=== PATIENT | female | born 1945 | race Caucasian/White ===

== ENCOUNTER → 2019-09-01 09:05 | Outpatient (BNVA) | payer MEDICARE, MEDICAID, SELFPAY | PROVIDERS: Family Provider Physician Assistant Medical; PCP Physician Assistant Medical; Visit Provider Anesthesiology | DX: G89.4 Chronic pain syndrome (principal); M79.605 Pain in left leg; Z79.891 Long term (current) use of opiate analgesic | CPT/HCPCS: 99213; 99214 ==

== ENCOUNTER → 2020-03-08 08:18 | Outpatient (BNVA) | payer MEDICARE, MEDICAID, SELFPAY | PROVIDERS: Family Provider Physician Assistant Medical; PCP Physician Assistant Medical; Visit Provider Anesthesiology | DX: G89.4 Chronic pain syndrome (principal); M79.605 Pain in left leg; M54.9 Dorsalgia, unspecified; Z79.891 Long term (current) use of opiate analgesic | CPT/HCPCS: 99214 ==

== ENCOUNTER → 2020-05-02 08:23 | Outpatient (BNVA) | payer MEDICARE, MEDICAID, SELFPAY | PROVIDERS: Family Provider Physician Assistant Medical; PCP Physician Assistant Medical; Visit Provider Anesthesiology | DX: G89.4 Chronic pain syndrome (principal); M79.605 Pain in left leg; M54.9 Dorsalgia, unspecified; R29.898 Other symptoms and signs involving the musculoskeletal system; Z79.891 Long term (current) use of opiate analgesic | CPT/HCPCS: 99213; 99214 ==

== ENCOUNTER → 2020-07-05 10:49 | Outpatient (BNVA) | payer MEDICARE, MEDICAID, SELFPAY | PROVIDERS: Family Provider Physician Assistant Medical; PCP Physician Assistant Medical; Visit Provider Nurse Practitioner | DX: G89.29 Other chronic pain (principal); M79.605 Pain in left leg; R29.898 Other symptoms and signs involving the musculoskeletal system; M54.9 Dorsalgia, unspecified; Z79.891 Long term (current) use of opiate analgesic | CPT/HCPCS: 99213 ==

== ENCOUNTER → 2020-09-01 10:47 | Outpatient (BNVA) | payer OTHER, MEDICAID, SELFPAY | PROVIDERS: Family Provider Physician Assistant Medical; PCP Physician Assistant Medical; Visit Provider Nurse Practitioner | DX: G89.29 Other chronic pain (principal); M79.605 Pain in left leg; M54.9 Dorsalgia, unspecified; R29.898 Other symptoms and signs involving the musculoskeletal system; Z79.891 Long term (current) use of opiate analgesic | CPT/HCPCS: 99212; 99213 ==

== ENCOUNTER → 2020-10-27 10:26 | Outpatient (BNVA) | payer MEDICARE, MEDICAID, SELFPAY | PROVIDERS: Family Provider Physician Assistant Medical; PCP Physician Assistant Medical; Visit Provider Nurse Practitioner | DX: G89.29 Other chronic pain (principal); R29.898 Other symptoms and signs involving the musculoskeletal system; M79.605 Pain in left leg; M54.9 Dorsalgia, unspecified; Z79.891 Long term (current) use of opiate analgesic | CPT/HCPCS: 99212; 99213 ==

== ENCOUNTER → 2020-12-20 10:45 | Outpatient (BNVA) | payer MEDICARE, MEDICAID, SELFPAY | PROVIDERS: Family Provider Physician Assistant Medical; PCP Physician Assistant Medical; Visit Provider Anesthesiology | DX: G89.29 Other chronic pain (principal); M79.605 Pain in left leg; R29.898 Other symptoms and signs involving the musculoskeletal system; M54.9 Dorsalgia, unspecified; Z79.891 Long term (current) use of opiate analgesic | CPT/HCPCS: 99213 ==

== ENCOUNTER → 2021-02-28 10:35 | Outpatient (BNVA) | payer MEDICARE, MEDICAID, SELFPAY | PROVIDERS: Family Provider Physician Assistant Medical; PCP Physician Assistant Medical; Visit Provider Nurse Practitioner | DX: G89.29 Other chronic pain (principal); M79.605 Pain in left leg; M54.9 Dorsalgia, unspecified; R29.898 Other symptoms and signs involving the musculoskeletal system; Z79.891 Long term (current) use of opiate analgesic | CPT/HCPCS: 99213; 99214 ==

== ENCOUNTER → 2021-03-29 13:09 | Outpatient (BNVA) | payer MEDICARE, MEDICAID, SELFPAY | PROVIDERS: Family Provider Physician Assistant Medical; PCP Physician Assistant Medical; Visit Provider Anesthesiology | DX: G89.29 Other chronic pain (principal); M54.5 Low back pain; M79.605 Pain in left leg; M79.604 Pain in right leg; Z79.891 Long term (current) use of opiate analgesic | CPT/HCPCS: 99213 ==

== ENCOUNTER → 2021-05-17 13:03 | Outpatient (BNVA) | payer MEDICARE, MEDICAID, SELFPAY | PROVIDERS: Family Provider Physician Assistant Medical; PCP Physician Assistant Medical; Visit Provider Anesthesiology | DX: G89.29 Other chronic pain (principal); M79.605 Pain in left leg; M54.50 Low back pain, unspecified; Z79.891 Long term (current) use of opiate analgesic | CPT/HCPCS: 99213 ==

== ENCOUNTER → 2021-07-26 09:43 | Outpatient (BNVA) | payer MEDICARE, MEDICAID, SELFPAY | PROVIDERS: Family Provider Physician Assistant Medical; PCP Registered Nurse; Visit Provider Anesthesiology | DX: G89.29 Other chronic pain (principal); M54.9 Dorsalgia, unspecified; M79.605 Pain in left leg; Z79.891 Long term (current) use of opiate analgesic | CPT/HCPCS: 99213 ==

== ENCOUNTER 2024-04-21 13:25 | Inpatient (IN) | payer MEDICARE, MEDICAID, SELFPAY ==
[2024-04-21] VITALS (15 sets, daily range): BP systolic 122–215; BP diastolic 74–99; PULSE 70–114; RESP 10–18; TEMP 36.7–37.5; O2SAT 85–96; BMI 18.8; BMI 18.1
--- NOTE | 2024-04-21 13:30 | XR_ITS ---
WS: [id number] Right hip, 2 views, AP pelvis, 04/21/2024 Clinical Data: fall Comparison: None. Findings: There is a femoral neck fracture of the right hip. The right femoral head remains within the acetabul um. The left hip shows no definite fracture. The pelvis is intact. There is degenerative change of the lower lumbar vertebral bodies. There is a v katrin caval filter noted. XR/XR hip RT 2-3V wo/w pel* [id number] Impression: 1. Right femoral neck fracture. 2. Negative for definite left hip fracture
--- NOTE | 2024-04-21 13:31 | ED_ITS ---
HPI - Fall 2 General: Chief Complaint: Fall Stated Complaint: FALL Time Seen by Provider: 04/21/24 13:26 Source: patient and EMS Mode of arrival: EMS Limitations: no limitations History of Present Illness: 79-year-old female states she was in her kitchen today and tripped and fell onto her right hip. She states she has had severe right hip pain since then she has not been able to stand she states it is very painful with any movement. She denies hitting her head denies any other injuries at this time. Associated symptoms-after fall: Denies abdominal pain, chest pain, headache(s) or neck pain Related Data Home Medications Medication Instructions Recorded Confirmed apixaban 5 mg tablet (Eliquis) 5 mg PO BID 09/01/19 07/26/21 diphenhydramine HCl 25 mg capsule 25 mg PO .1 at bedtime PRN 12/23/19 07/26/21 (NightTime Sleep Aid (diphenhydramine)) omeprazole 20 mg tablet,delayed 20 mg PO DAILY 12/23/19 07/26/21 release L.acidop,casei,lactis,rham-B.lact,callum cap PO .1 day 05/17/21 07/26/21 625 mg (10 billion cell) capsule (Advanced Probiotic) Previous Rx's Medication Instructions Recorded diclofenac sodium 1 % topical gel 2 g topical QID PRN pain #400 grams 10/27/20 (Voltaren) oxycodone 10 mg tablet 10 mg PO .6 times a day PRN pain 07/26/21 30 days #180 tabs oxycodone 10 mg tablet 10 mg PO .6 times a day PRN pain 07/26/21 30 days #180 tabs tramadol 50 mg tablet 50 mg PO .6 TIMES PRN pain 30 days 07/26/21 #180 tabs Allergies Allergy/AdvReac Type Severity Reaction Status Date / Time celecoxib [From Celebrex] Allergy ADR-Vomitin Verified 07/26/21 09:46 g gabapentin Allergy Unknown Verified 07/26/21 09:46 ibuprofen Allergy ADR-Vomitin Verified 07/26/21 09:46 g nalbuphine [From Nubain] Allergy ADR-Halluci Verified 07/26/21 09:46 nating zolpidem [From Ambien] Allergy ADR-Halluci Verified 07/26/21 09:46 nating Review of Systems 2 Const: Denies: fever(s), chills, body aches or change in appetite ENMT: Denies: throat pain or dental pain Card: Denies: chest pain Resp: Denies: dyspnea GI: Denies: abdominal pain, nausea, vomiting or diarrhea Musc: Reports: extremity pain; Denies: neck pain or back pain Skin/Breast: Denies: rash Neuro: Denies: headache(s) PFSH ED 2 PFSH: Medical History Chronic pain of left lower extremity Nerve entrapment Chronic back pain Opioid contract exists Chronic pain disorder 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 Hx of cancer of lung Surgical History H/O: hysterectomy History of lumpectomy of left breast Hx of cholecystectomy Family History Denies family history of Anesthesia complication Social History Second hand smoke exposure: No Alcohol intake: never Substance/Drug Use: never Physical Exam 2 Const: COMMON NORMALS: no acute distress, patient oriented x3 and healthy appearing HENMT: COMMON NORMALS: normocephalic and atraumatic HEAD & SCALP: n ormocephalic and atraumatic Eye: COMMON NORMALS: conjunctivae normal CONJUNCTIVA: Yes conjunctivae normal Neck/C-Spine: COMMON NORMALS: full ROM and supple Chest: COMMONS NORMALS: normal inspection of the chest Resp: COMMON NORMALS: normal respiratory effort, No retractions, No use of accessory muscles and clear to auscultation bilaterally AUSCULTATION: clear to auscultation bilaterally Cardio: COMMON NORMALS: regular rate, regular rhythm and No murmurs present (Cardio) RATE: regular rate RHYTHM: regular rhythm GI: COMMON NORMALS: Normal to inspection, nondistended, normoactive bowel sounds present, Soft to palpation, non-tender and no masses PALPATION: Yes Soft to palpation Extremity: NARRATIVE EXTREMITY EXAM: Tenderness to right hip distal pulses palpable Neuro: COMMON NORMALS: patient oriented x3, moves all extremities and no focal motor deficits Psych: COMMON NORMALS: mental status grossly normal, Normal thought process present and cooperative THOUGHT PROCESS: Normal thought process present Skin: COMMON NORMALS: no rashes or lesions noted and no wounds GENERAL SKIN EXAM: no rashes or lesions noted Course 2 Vital Signs: Vital signs: Vital Signs Temperature 98.3 F 04/21/24 13:28 Pulse Rate 70 04/21/24 14:34 Respiratory Rate 16 04/21/24 14:08 Blood Pressure 195/91 04/21/24 14:34 Pulse Oximetry 96 04/21/24 14:34 Oxygen Delivery Me thod Aerosol Mask 04/21/24 14:34 MDM - Fall Medical Decision Making Patient presents here with right hip fracture from a fall no other injuries noted I spoke to hospitalist along with orthopedist will admit at this time. Medical Records I reviewed the patient's medical records. Lab Data I reviewed the patient's lab results. 04/21/24 14:15 04/21/24 14:15 Laboratory Results WBC 7.06 10^3/uL (3.29-11.43) 04/21/24 14:15 RBC 4.17 10^6/uL (3.85-5.65) 04/21/24 14:15 Hgb 12.00 g/dL (11.27-16.99) 04/21/24 14:15 Hct 38.6 % (36-47) 04/21/24 14:15 MCV 92.6 fl (85-98) 04/21/24 14:15 MCH 28.8 pg (27-33) 04/21/24 14:15 MCHC 31.1 g/dL (30-55) 04/21/24 14:15 RDW 13.6 % (12.1-15.1) 04/21/24 14:15 Plt Count 225 10^3/cmm (157-399) 04/21/24 14:15 MPV 9.6 fL (7.4-10.4) 04/21/24 14:15 Neut % (Auto) 80.2 % 04/21/24 14:15 Lymph % (Auto) 10.8 % 04/21/24 14:15 Barnwell % (Auto) 6.2 % 04/21/24 14:15 Eos % (Auto) 1.1 % 04/21/24 14:15 Baso % (Auto) 0.7 % 04/21/24 14:15 Neut # (Auto) 5.66 10^3/uL (1.8-7.7) 04/21/24 14:15 Lymph # (Auto) 0.8 10^3/uL (0.8-4.8) 04/21/24 14:15 Barnwell # (Auto) 0.4 10^3/uL (0.2-0.9) 04/21/24 14:15 Eos # (Auto) 0.1 10^3/uL (0.0-0.8) 04/21/24 14:15 Baso # (Auto) 0.1 10^3/uL (0.0-0.1) 04/21/24 14:15 Nucleated RBC % (auto) 0 % 04/21/24 14:15 Nucleated RBCs # 0.0 /100WBC 04/21/24 14:15 Sodium 140 mmol/L (136-145) 04/21/24 14:15 Potassium 4.0 mmol/L (3.5-5.1) 04/21/24 14:15 Chloride 104 mmol/L (98-107) 04/21/24 14:15 Carbon Dioxide 25 mmol/L (22-29) 04/21/24 14:15 Anion Gap 15.0 (5-19) 04/21/24 14:15 BUN 40 mg/dL (8-23) H 04/21/24 14:15 Creatinine 2.2 mg/dL (0.5-0.9) H 04/21/24 14:15 GFR Calculation Not Reportable 04/21/24 14:15 Glucose 93 mg/dL (65-115) 04/21/24 14:15 Calculated Osmolality 299 mOsm/kg (285-295) H 04/21/24 14:15 Calcium 9.1 mg/dL (8.5-10.5) 04/21/24 14:15 Total Bilirubin 0.4 mg/dL (0.15-1.2) 04/21/24 14:15 AST 18 U/L (0-32) 04/21/24 14:15 ALT 13 U/L (0-33) 04/21/24 14:15 Alkaline Phosphatase 96 U/L (35-105) 04/21/24 14:15 Total Protein 6.6 g/dL (6.6-8.7) 04/21/24 14:15 Albumin 4.2 g/dL (3.5-5.2) 04/21/24 14:15 Globulin 2.4 g/dL (1.3-4.6) 04/21/24 14:15 All radiology interpretation(s) finalized by discharge Discharge Plan Discharge Patient Disposition: Admitted As Inpatient Clinical Impression: Closed fracture of right hip Qualifiers: Encounter type: initial encounter Qualified Code(s): S72.001A - Fracture of unspecified part of neck of right femur, initial encounter for closed fracture Condition: Stable Coding Level of Care Code ED Technical Professional for Maria De Jesus Stafford
[2024-04-21] MEDS: ondansetron 2 mg/ML SDV 2 mL 4 MG IVP (14:07)
[2024-04-21] MEDS: morphine 4 mg/mL SDV 1 mL IVP (14:08)
--- NOTE | 2024-04-21 14:46 | XR_ITS ---
WS: [id number] Portable AP supine chest, 04/21/2024 Clinical Data: fall Comparison: None. Findings: No nodules, masses or effusions are seen. The heart is normal. The pulmonary vascularity is not increased. No pneumonia or pneumothorax is seen. The diaphragms are flattened. The aortic arch s hows calcification and tortuosity. There is surgical clips at the gastroesophageal junction into the right of the upper lumbar vertebral bodies. There is a dextroscoliosis of the thoracic spine. XR/XR chest 1V portable [id number] Impression: Atherosclerosis and hyperinflation.
--- NOTE | 2024-04-21 14:47 | ECG_ITS ---
[facility] Test Date: 2024-04-21 Pat Name: Mili Lancaster Department: Room: Gender: Female Erp Technical Lead: : 1945 Requested By: Isra Pereira Order Number: [id number] Bigg MD: Alayna Olson M.D. Measurements Intervals Madeline Rate: 70 P: 88 GA: 137 QRS: 79 QRSD: 81 T: 77 QT: 387 QTc: 419 Interpretive Statements SINUS RHYTHM WITH OCCASIONAL SUPRAVENTRICULAR PREMATURE COMPLEXES MINIMAL VOLTAGE CRITERIA FOR LVH, CONSIDER NORMAL VARIANT [MEETS CRITERIA IN ONE OF: R(aVL), S(V1), R(V5), R(V5/V6)+S(V1)] SEPTAL MYOCARDIAL INFARCTION , PROBABLY OLD [40+ ms Q WAVE IN V1/V2] Compared to ECG 01/18/2019 06:03:57 Myocardial infarct finding now present Electronically Signed On 04-22-2024 0:22:50 CDT by Alayna Olson M.D. [id number]
[2024-04-21 15:08] LABS: Alanine Aminotransferase 13 U/L (0-33); Albumin Level 4.2 g/dL (3.5-5.2); Alkaline Phosphatase 96 U/L (35-105); Aspartate Amino Transferase 18 U/L (0-32); Basophils # 0.1 10^3/uL (0.0-0.1); Basophils % 0.7 %; Blood Urea Nitrogen 40 mg/dL (8-23); Calcium 9.1 mg/dL (8.5-10.5); Carbon Dioxide 25 mmol/L (22-29); Chloride 104 mmol/L (98-107); Eosinophils # 0.1 10^3/uL (0.0-0.8); Eosinophils % 1.1 %; Globulin 2.4 g/dL (1.3-4.6); Glucose 93 mg/dL (65-115); Hematocrit 38.6 % (36-47); Lymphocytes # 0.8 10^3/uL (0.8-4.8); Lymphocytes % 10.8 %; Mean Corpuscular HGB Conc 31.1 g/dL (30-55); Mean Corpuscular Hemoglobin 28.8 pg (27-33); Mean Corpuscular Volume 92.6 fl (85-98); Mean Platelet Volume 9.6 fL (7.4-10.4); Monocytes # 0.4 10^3/uL (0.2-0.9); Monocytes % 6.2 %; Neutrophils # 5.66 10^3/uL (1.8-7.7); Neutrophils % 80.2 %; Nucleated Red Blood Cells % 0 %; Osmolality Calculated 299 mOsm/kg (285-295); Platelet Count 225 10^3/cmm (157-399); Red Blood Count 4.17 10^6/uL (3.85-5.65); Red Cell Distribution Width 13.6 % (12.1-15.1); Sodium 140 mmol/L (136-145); Total Bilirubin 0.4 mg/dL (0.15-1.2); Total Protein 6.6 g/dL (6.6-8.7); White Blood Count 7.06 10^3/uL (3.29-11.43)
[2024-04-21 15:09] LABS: Creatinine Clr Calc Pharmacy 16.7097
[2024-04-21 15:13] LABS: INR 0.97 (0.8-1.2)
--- NOTE | 2024-04-21 15:49 | P.HP_ITS ---
Providers/Chief Complaint 2 Admitting Physician: Temo Hassan MD Primary Care Provider: Yary Tilley Chief Complaint: FALL History of Present Illness Mili Lancaster is a 79 year old female presenting to the hospital from home with history of an unwitnessed fall. She states her legs just gave out. She denies any dizziness, other injuries, loss of consciousness. She denies any headache, nausea, neck pain. She has a past history of lung cancer, COPD, breast cancer, reflux, chronic pain, chronic kidney disease. Her daughter thinks she may have some underlying dementia. She helps with her history. She denies any history of chest pain, stroke. Review of Systems 2 General: Reports: 10 or more systems reviewed and unremarkable except in HPI and below Card: Denies: chest pain Resp: Denies: dyspnea GI: Denies: abdominal pain Medications/Allergies Home Medications Medication Instructions Recorded Confirmed Last Taken Type apixaban 5 mg tablet (Eliquis) 5 mg PO BID 09/01/19 07/26/21 Unknown History diphenhydramine HCl 25 mg capsule 25 mg PO .1 at bedtime PRN 12/23/19 07/26/21 Unknown History (NightTime Sleep Aid (diphenhydramine)) omeprazole 20 mg tablet,delayed 20 mg PO DAILY 12/23/19 07/26/21 Unknown History release diclofenac sodium 1 % topical gel 2 g topical QID PRN pain #400 grams 10/27/20 07/26/21 Unknown Rx (Voltaren) L.acidop,casei,lactis,rham-B.lact,callum cap PO .1 day 05/17/21 07/26/21 Unknown History 625 mg (10 billion cell) capsule (Advanced Probiotic) oxycodone 10 mg tablet 10 mg PO .6 times a day PRN pain 07/26/21 07/26/21 Unknown Rx 30 days #180 tabs oxycodone 10 mg tablet 10 mg PO .6 times a day PRN pain 07/26/21 07/26/21 Unknown Rx 30 days #180 tabs tramadol 50 mg tablet 50 mg PO .6 TIMES PRN pain 30 days 07/26/21 07/26/21 Unknown Rx #180 tabs Allergies Allergy/AdvReac Type Severity Reaction Status Date / Time celecoxib [From Celebrex] Allergy ADR-Vomitin Verified 07/26/21 09:46 g gabapentin Allergy Unknown Verified 07/26/21 09:46 ibuprofen Allergy ADR-Vomitin Verified 07/26/21 09:46 g nalbuphine [From Nubain] Allergy ADR-Halluci Verified 07/26/21 09:46 nating zolpidem [From Ambien] Allergy ADR-Halluci Verified 07/26/21 09:46 nating PFSH Acute 2 PFSH: Medical History (Updated 04/21/24 @ 16:04 by Temo Hassan MD) COPD (chronic obstructive pulmonary disease) GERD (gastroesophageal reflux disease) Chronic kidney disease History of breast cancer Chronic pain of left lower extremity Nerve entrapment Chronic back pain Opioid contract exists Chronic pain disorder Hx of blood clots MCC (current) use of opiate analgesic Hx of cancer of lung Surgical History H/O: hysterectomy Hx of cholecystectomy History of lumpectomy of left breast Family History Denies family history of Anesthesia complication Social History Second hand smoke exposure: No Alcohol intake: never Substance/Drug Use: never Vitals/I&O/Wt Last Vital Signs Temp 98.3 F 04/21/24 13:28 Pulse 70 04/21/24 14:34 Resp 16 04/21/24 14:08 BP 195/91 04/21/24 14:34 Pulse Ox 96 04/21/24 14:34 O2 Del Method Aerosol Mask 04/21/24 14:34 Weight last 48 hrs Weight 49.895 kg Physical Exam 2 Narrative: General Exam, white female, good speech, communicating pain right hip HEENT: Atraumatic normocephalic. Oropharynx clear Neck is supple no lymphadenopathy thyromegaly Cardiovascular regular rate and rhythm, no murmur Lungs clear but diminished breath sounds bilaterally Abdomen soft, positive bowel sounds exams deferred Extremities no cyanosis clubbing or edema, right lower extremity shortened externally rotated Skin no rash Neuro no focal deficits Data 04/21/24 14:15 04/21/24 14:15 Other Labs: Chest x-ray with atherosclerotic aorta, COPD, no infiltrate. I reviewed this myself. Hip and pelvis x-ray which I reviewed demonstrates hip fracture INR 0.97 LFTs normal I have ordered a TSH and B12, and urinalysis EKG demonstrates sinus rhythm, 1 PAC, normal axis, small Q waves septally A&P Assessment and plan (1) Closed fracture of right hip: Patient with hip fracture Orthopedic consult Pain control with Dilaudid, nausea control Stoll Qualifiers: Encounter type: initial encounter Qualified Code(s): S72.001A - Fracture of unspecified part of neck of right femur, initial encounter for closed fracture (2) Hx of blood clots: Patient has not been on anticoagulant for at least a year SCDs for DVT prophylaxis Will start DVT prophylaxis immediately following surgery. As I do not know the timing of the surgery now, will not give anticoagulant now in case spinal is preferred secondary to the patient's COPD, history of pneumonectomy (3) COPD (chronic obstructive pulmonary disease): Budesonide twice daily DuoNeb as needed Plan Other medical problems as outlined in past medical history Full code SCDs for DVT prophylaxis currently. Medical pharmacologic contraindicated at this time awaiting surgical plans. Attestations 2 Medical Necessity Statement*: Will need greater than 2 midnight stay for evaluation and treatment of hip fracture Diagnoses Closed fracture of right hip S72.001A Encounter type: initial encounter Hx of blood clots Z86.718 COPD (chronic obstructive pulmonary disease) J44.9 Time Spent (min) 54
[2024-04-21] MEDS: HYDROmorphone 1 mg/mL INJ 1 mL 0.5 MG IVP ×2 (16:00→18:49)
[2024-04-21 16:52] LABS: Thyroid Stimulating Hormone 1.55 uIU/mL (0.27-4.20); Vitamin B12 599 pg/mL (232-1245)
[2024-04-21] MEDS: sodium chloride 0.9% 1,000 ML 75 ML IV (17:08)
[2024-04-21] MEDS: docusate sodium 100 mg Capsule PO (17:18)
[2024-04-21] MEDS: oxyCODONE 5 mg IR Tab/Cap PO (17:18)
[2024-04-21 17:33] LABS: Creatine Phosphokinase 45 U/L (26-192)
[2024-04-21] MEDS: amlodipine 5 mg Tablet PO (17:37)
[2024-04-21] MEDS: hyDRALAzine 20 mg/mL INJ 1 mL 10 MG IVP (17:39)
[2024-04-21 19:01] LABS: Bilirubin Urine Neg (Negative); Blood Urine Neg (Negative); Glucose Urine UA Norm (Normal); Ketones Urine Negative (Negative); Leukocyte Esterase Urine Trace (Negative); Nitrate Urine Negative (Negative); Protein Urine 2+ (Negative); Specific Gravity, Urine 1.015 (1.005-1.030); Urine Appearance Cloudy (CLEAR); Urine Color Yellow (Yellow); Urobilinogen Urine Norm (Negative); pH Urine 5 (5-7)
[2024-04-21 19:02] LABS: Add Urine Culture? Yes; Bacteria Urine 4+ /hpf; RBC Urine 0-4 /hpf (0-2); Squamous Epithelial Cell Urine 0-4 /hpf (0-5); WBC Urine 15-25 /hpf (0-5)
[2024-04-21] MEDS: oxyCODONE 5 mg IR Tab/Cap 10 MG PO (20:14)
[2024-04-21] MEDS: heparin 5,000 unit/mL INJ 1 mL 5000 UNIT SUBCUT (20:15)
[2024-04-21] MEDS: sennosides 8.6 mg Tablet 17.2 MG PO (20:15)
[2024-04-21] MEDS: budesonide 0.5 mg/2 mL Neb INHALATION (20:31)
[2024-04-22] VITALS (10 sets, daily range): BP systolic 126–161; BP diastolic 70–83; PULSE 80–92; RESP 14–22; TEMP 36.6–37; O2SAT 84–99
[2024-04-22 05:31] LABS: Basophils % 0.5 %; Eosinophils # 0.2 10^3/uL (0.0-0.8); Lymphocytes # 0.6 10^3/uL (0.8-4.8); Lymphocytes % 7.7 %; Mean Corpuscular HGB Conc 30.6 g/dL (30-55); Mean Corpuscular Hemoglobin 28.6 pg (27-33); Mean Corpuscular Volume 93.5 fl (85-98); Mean Platelet Volume 9.3 fL (7.4-10.4); Monocytes # 0.4 10^3/uL (0.2-0.9); Monocytes % 5.7 %; Neutrophils # 6.13 10^3/uL (1.8-7.7); Neutrophils % 83.4 %; Nucleated Red Blood Cells % 0 %; Platelet Count 161 10^3/cmm (157-399); Red Blood Count 3.53 10^6/uL (3.85-5.65); Red Cell Distribution Width 14.2 % (12.1-15.1); White Blood Count 7.36 10^3/uL (3.29-11.43)
[2024-04-22] MEDS: HYDROmorphone 1 mg/mL INJ 1 mL 0.5 MG IVP (05:52)
[2024-04-22 05:54] LABS: Anion Gap 14.7 (5-19); Blood Urea Nitrogen 40 mg/dL (8-23); Calcium 8.5 mg/dL (8.5-10.5); Carbon Dioxide 24 mmol/L (22-29); Chloride 109 mmol/L (98-107); Creatinine Clr Calc Pharmacy 16.4548; Glucose 108 mg/dL (65-115); Osmolality Calculated 306 mOsm/kg (285-295); Potassium 4.7 mmol/L (3.5-5.1); Sodium 143 mmol/L (136-145)
[2024-04-22] MEDS: sodium chloride 0.9% 1,000 ML 75 ML IV ×2 (06:22→17:49)
--- NOTE | 2024-04-22 07:55 | P.PN_ITS ---
Documented by User: ERIC Joy STDTONI 04/22/24 11:49 Subjective 2 Subjective: Patient is doing well. Pain is being managed, received two doses of Dilaudid overnight with the last dose being at 6 am. At around 9am, patient was in pain and received oxycodone. Patient is hard of hearing. Patient has a hard time answering questions and struggles with finding words. Patient is scheduled for surgery tomorrow with NPO starting at midnight. Vitals/I&O/Wt Last Vital Signs Temp 98.6 F 04/22/24 07:49 Pulse 90 04/22/24 07:49 Resp 16 04/22/24 07:49 BP 149/83 04/22/24 07:49 Pulse Ox 90 04/22/24 07:49 O2 Del Method Nasal Cannula 04/22/24 07:49 O2 Flow Rate 2 04/21/24 20:37 04/21/24 04/22/24 04/22/24 22:59 06:59 14:59 Intake Total 992.5 / 992.5 Output Total 450 / 450 100 / 550 Balance -450 / -450 892.5 / 442.5 Weight last 48 hrs Weight 107 lb 7 oz Weight 105 lb 9 oz Weight 110 lb Physical Exam 2 Neck/C-Spine: OTHER: Supple without tenderness or thyromegaly. Resp: OTHER: Normal breath sounds bilaterally. Clear on auscultation. Cardio: OTHER: Normal rate and rhythm without murmurs, gallops, or rubs noted GI: OTHER: soft, nondistended with bowel sounds. Back/Pelvis: OTHER: Painful right hip Extremity: NARRATIVE EXTREMITY EXAM: No edema or cyanosis bilaterally. Right leg is shortened and externally rotated. Urinary Catheter Management: Stoll: Cath Placed During This Visit: yes Reason for Continuing Indwelling Catheter: Required Immobilization for Trauma or Surgery or Anesthesia Urinary Catheter Date of Insertion: 04/21/24 Urinary Catheter Time of Insertion: 16:00 Data 04/22/24 05:10 04/22/24 05:10 A&P Assessment and plan (1) Displaced fracture of right femoral neck: Manage pain with Dilaudid and oxycodone. Surgery is scheduled for tomorrow. Will be NPO starting at midnight (2) UTI (urinary tract infection): Positive urine for 2+ protein, trace leukocyte esterase, high WBCs, RBCs 0-4, Bacteria 4+. Started on ceftriaxone. (3) COPD (chronic obstructive pulmonary disease): Budesonide twice daily DuoNeb as needed (4) Hx of blood clots: Heparin for DVT prophylaxis Plan Full Code Coding Level of Care Code Acute Code for Chg Fwd Diagnoses Displaced fracture of right femoral neck S72.001A UTI (urinary tract infection) N39.0 COPD (chronic obstructive pulmonary disease) J44.9 Hx of blood clots Z86.718 Documented by User: Temo Hassan MD 04/22/24 13:02 Subjective 2 Medications: Reviewed: Yes Physical Exam 2 Urinary Catheter Management: Stoll: Cath Placed During This Visit: yes Data 04/22/24 05:10 04/22/24 05:10 A&P Assessment and plan (1) Displaced fracture of right femoral neck: (2) UTI (urinary tract infection): (3) COPD (chronic obstructive pulmonary disease): (4) Hx of blood clots: Plan Heparin for DVT prophylaxis Full Code Attestations 2 Medical Necessity Statement*: See other note Coding Level of Care Code Acute Code for g Fwd Diagnoses Displaced fracture of right femoral neck S72.001A UTI (urinary tract infection) N39.0 COPD (chronic obstructive pulmonary disease) J44.9 Hx of blood clots Z86.718
[2024-04-22] MEDS: budesonide 0.5 mg/2 mL Neb INHALATION ×2 (08:36→20:08)
[2024-04-22] MEDS: ipratropium-albuterol 3 mL Neb INHALATION (08:36)
[2024-04-22] MEDS: oxyCODONE 5 mg IR Tab/Cap 10 MG PO ×2 (08:49→17:49)
[2024-04-22] MEDS: cefTRIAXone 1,000 mg SDV 1000 MG IVP (08:51)
[2024-04-22] MEDS: amlodipine 5 mg Tablet PO (08:51)
[2024-04-22] MEDS: docusate sodium 100 mg Capsule PO ×2 (08:51→17:49)
[2024-04-22] MEDS: heparin 5,000 unit/mL INJ 1 mL 5000 UNIT SUBCUT ×2 (08:52→20:24)
--- NOTE | 2024-04-22 09:34 | PC.PHAR ---
pt states takes no medications except Probiotics daily and Benadryl sleep aid at bedtime as needed. Removed from list: Voltaren gel 1% 2g qid prn, Eliquis 2.5mg bid, Omeprazole 20mg daily, and Oxycodone 10mg 6x daily prn. Verified with [facility] [place]-they have not filled anything for her in 200+ days.
--- NOTE | 2024-04-22 09:49 | P.CONIM_ITS ---
Providers/Reason For Consult 2 Consulting Physician/Specialty*: Hospitalist Reason for Consult*: Right femoral neck fracture Attending Physician: Temo Hassan MD Primary Care Provider: Yary Tilley History of Present Illness History of Present Illness Mili Lancaster is a 79 year old female had an unwitnessed fall at home sustaining a right femoral neck fracture Review of Systems 2 General: Reports: 10 or more systems reviewed and unremarkable except in HPI and below Card: Denies: chest pain Resp: Denies: dyspnea GI: Denies: abdominal pain Medications/Allergies Home Medications Medication Instructions Recorded Confirmed Last Taken Type diphenhydramine HCl 25 mg capsule 25 mg PO BEDTIME PRN Sleep 12/23/19 04/22/24 Unknown History (NightTime Sleep Aid (diphenhydramine)) L.acidop,casei,lactis,rham-B.lact,callum 1 cap PO DAILY 05/17/21 04/22/24 Unknown History 625 mg (10 billion cell) capsule (Advanced Probiotic) Allergies Allergy/AdvReac Type Severity Reaction Status Date / Time celecoxib [From Celebrex] Allergy ADR-Vomitin Verified 07/26/21 09:46 g gabapentin Allergy Unknown Verified 07/26/21 09:46 ibuprofen Allergy ADR-Vomitin Verified 07/26/21 09:46 g nalbuphine [From Nubain] Allergy ADR-Halluci Verified 07/26/21 09:46 nating zolpidem [From Ambien] Allergy ADR-Halluci Verified 07/26/21 09:46 nating Current Medications Generic Name Dose Route Start Last Admin Trade Name Freq PRN Reason Stop Dose Admin Albuterol/Ipratropium 3 ml 04/21/24 17:03 04/22/24 08:36 Ipratropium-Albuterol 3 Ml Neb INHALATION 3 ml Q6H PRN Administration SHORTNESS OF BREATH Amlodipine Besylate 5 mg 04/21/24 17:15 04/22/24 08:51 Amlodipine 5 Mg Tablet PO 5 mg DAILY HUGH Administration Budesonide 0.5 mg 04/21/24 20:00 04/22/24 08:36 Budesonide 0.5 Mg/2 Ml Neb INHALATION 0.5 mg BID.RESPIRATORY HUGH Administration Ceftriaxone Sodium 1,000 mg 04/22/24 07:30 04/22/24 08:51 Ceftriaxone 1,000 Mg Sdv IVP 1,000 mg Q24H HUGH Administration Protocol Docusate Sodium 100 mg 04/21/24 18:00 04/22/24 08:51 Docusate Sodium 100 Mg Capsule PO 100 mg BID HUGH Administration Heparin Sodium (Porcine) 5,000 unit 04/21/24 21:00 04/22/24 08:52 Heparin 5,000 Unit/Ml Inj 1 Ml SUBCUT 5,000 unit Q12H HUGH Administration Hydralazine HCl 10 mg 04/21/24 17:14 04/21/24 17:39 Hydralazine 20 Mg/Ml Inj 1 Ml IVP 10 mg Q4H PRN Administration HYPERTENSION Hydromorphone HCl 0.5 mg 04/21/24 17:03 04/22/24 05:52 Hydromorphone 1 Mg/Ml Inj 1 Ml IVP 0.5 mg Q4H PRN Administration SEVERE PAIN Sodium Chloride 1,000 mls @ 75 mls/hr 04/21/24 17:03 04/22/24 06:22 Sodium Chloride 0.9% IV 75 mls/hr .[id number] HUGH Administration Oxycodone HCl 10 mg 04/21/24 18:17 04/22/24 08:49 Oxycodone 5 Mg Ir Tab/Cap PO 10 mg Q4H PRN Administration SEVERE PAIN Senna 17.2 mg 04/21/24 21:00 04/21/24 20:15 Sennosides 8.6 Mg Tablet PO 17.2 mg BEDTIME HUGH Administration PFSH Acute 2 PFSH: Medical History (Updated 04/22/24 @ 09:52 by Tony Hernandez DO) COPD (chronic obstructive pulmonary disease) GERD (gastroesophageal reflux disease) Chronic kidney disease History of breast cancer Chronic pain of left lower extremity Nerve entrapment Chronic back pain Opioid contract exists Chronic pain disorder 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 Hx of cancer of lung Surgical History H/O: hysterectomy Hx of cholecystectomy History of lumpectomy of left breast Family History Denies family history of Anesthesia complication Social History Second hand smoke exposure: No Alcohol intake: never Substance/Drug Use: never Vitals/I&O/Wt Last Vital Signs Temp 98.6 F 04/22/24 07:49 Pulse 87 04/22/24 08:37 Resp 17 04/22/24 08:49 BP 149/83 04/22/24 07:49 Pulse Ox 95 04/22/24 08:37 O2 Del Method Nasal Cannula 04/22/24 08:37 O2 Flow Rate 2 04/22/24 08:37 04/21/24 04/22/24 04/22/24 22:59 06:59 14:59 Intake Total 992.5 / 992.5 Output Total 450 / 450 100 / 550 Balance -450 / -450 892.5 / 442.5 Weight last 48 hrs Weight 107 lb 7 oz Weight 105 lb 9 oz Weight 110 lb Physical Exam 2 Narrative: Patient was asleep in the room I walked in with breakfast sitting appropriate. At this point is complaining of right hip pain Urinary Catheter Management: Stoll: Cath Placed During This Visit: yes Reason for Continuing Indwelling Catheter: Required Immobilization for Trauma or Surgery or Anesthesia Urinary Catheter Date of Insertion: 04/21/24 Urinary Catheter Time of Insertion: 16:00 Data 04/22/24 05:10 04/22/24 05:10 A&P Assessment and plan (1) Displaced fracture of right femoral neck: Plan on right hip hemiarthroplasty tomorrow Coding Level of Care Code Acute Code for Chg Fwd Diagnoses Displaced fracture of right femoral neck S72.001A
--- NOTE | 2024-04-22 10:34 | P.PN_ITS ---
Subjective 2 Subjective: Mili is awaiting her hip surgery. No new concerns. Urine was concerning for UTI, so IV antibiotic has been started. Medications: Reviewed: Yes Vitals/I&O/Wt Last Vital Signs Temp 98.6 F 04/22/24 07:49 Pulse 87 04/22/24 08:37 Resp 17 04/22/24 08:49 BP 149/83 04/22/24 07:49 Pulse Ox 95 04/22/24 08:37 O2 Del Method Nasal Cannula 04/22/24 08:37 O2 Flow Rate 2 04/22/24 08:37 04/21/24 04/22/24 04/22/24 22:59 06:59 14:59 Intake Total 992.5 / 992.5 Output Total 450 / 450 100 / 550 Balance -450 / -450 892.5 / 442.5 Weight last 48 hrs Weight 48.733 kg Weight 47.882 kg Weight 49.895 kg Physical Exam 2 Narrative: General Exam, no distress Neck is supple no lymphadenopathy thyromegaly Cardiovascular regular rate and rhythm, no murmur Lungs clear but diminished breath sounds bilaterally Abdomen soft, positive bowel sounds Extremities no cyanosis clubbing or edema, right lower extremity shortened externally rotated Urinary Catheter Management: Stoll: Cath Placed During This Visit: yes Reason for Continuing Indwelling Catheter: Required Immobilization for Trauma or Surgery or Anesthesia Urinary Catheter Date of Insertion: 04/21/24 Urinary Catheter Time of Insertion: 16:00 Data 04/22/24 05:10 04/22/24 05:10 A&P Assessment and plan (1) Closed fracture of right hip: Patient with hip fracture Orthopedic consult appreciated Pain control with Dilaudid, nausea control Senna for bowel regimen Stoll Surgery planned for tomorrow Qualifiers: Encounter type: initial encounter Qualified Code(s): S72.001A - Fracture of unspecified part of neck of right femur, initial encounter for closed fracture (2) Hx of blood clots: Patient has not been on anticoagulant for at least a year SCDs for DVT prophylaxis Heparin was started for DVT prophylaxis (3) COPD (chronic obstructive pulmonary disease): Budesonide twice daily DuoNeb as needed Stable currently Plan Other medical problems as outlined in past medical history Full code Heparin for DVT prophylaxis. Attestations 2 Medical Necessity Statement*: Requires continued hospitalization for definitive care of hip fracture Diagnoses Closed fracture of right hip S72.001A Encounter type: initial encounter Hx of blood clots Z86.718 COPD (chronic obstructive pulmonary disease) J44.9
[2024-04-22] MEDS: sennosides 8.6 mg Tablet 17.2 MG PO (20:24)
[2024-04-23] VITALS (28 sets, daily range): BP systolic 144–198; BP diastolic 69–119; PULSE 76–95; RESP 10–20; TEMP 36.4–37.6; O2SAT 89–100
[2024-04-23] MEDS: oxyCODONE 5 mg IR Tab/Cap 10 MG PO (04:04)
--- NOTE | 2024-04-23 07:16 | P.PN_ITS ---
Documented by User: ERIC Joy STDTONI 04/23/24 09:12 Subjective 2 Subjective: Patient is waiting for hip surgery scheduled for today. Patient still having issues with answering questions, will have a blank or puzzled look on her face at time when trying to converse with her. Vitals/I&O/Wt Last Vital Signs Temp 98.4 F 04/23/24 04:00 Pulse 92 04/23/24 04:00 Resp 16 04/23/24 04:04 BP 179/83 04/23/24 04:00 Pulse Ox 95 04/23/24 04:00 O2 Del Method Nasal Cannula 04/23/24 04:00 O2 Flow Rate 2 04/22/24 20:00 FiO2 21 04/22/24 20:00 04/22/24 04/23/24 04/23/24 22:59 06:59 14:59 Intake Total 978.75 / 978.75 Output Total 1100 / 1100 400 / 1500 Balance -121.25 / -121.25 -400 / -521.25 Weight last 48 hrs Weight 108 lb 7 oz Weight 107 lb 7 oz Weight 105 lb 9 oz Weight 110 lb Physical Exam 2 Neck/C-Spine: OTHER: Supple without tenderness or thyromegaly. Resp: OTHER: Normal breath sounds bilaterally. Clear on auscultation. Normal and equal chest all expansion. Cardio: OTHER: Normal rate and rhythm without murmurs, gallops, or rubs noted GI: OTHER: Soft, nondistended with bowel sounds. Back/Pelvis: OTHER: Painful right hip Extremity: OTHER: No edema or cyanosis bilaterally. Right leg is shortened and slightly externally rotated. Urinary Catheter Management: Stoll: Cath Placed During This Visit: yes Reason for Continuing Indwelling Catheter: Required Immobilization for Trauma or Surgery or Anesthesia Urinary Catheter Date of Insertion: 04/21/24 Urinary Catheter Time of Insertion: 16:00 Data 04/22/24 05:10 04/22/24 05:10 A&P Assessment and plan (1) Displaced fracture of right femoral neck: Patient receiving surgery today, NPO since midnight Pain control with Dilaudid and oxycodone, nausea control with Zofran Senna for bowel regimen Stoll in place (2) UTI (urinary tract infection): Still continuing ceftriaxone (3) COPD (chronic obstructive pulmonary disease): Budesonide twice daily DuoNeb as needed (4) Hx of blood clots: Heparin and SCDs for DVT PPx Plan Full code Coding Level of Care Code 75455 Diagnoses Displaced fracture of right femoral neck S72.001A UTI (urinary tract infection) N39.0 COPD (chronic obstructive pulmonary disease) J44.9 Hx of blood clots Z86.718 Time Spent (min) 26 Documented by User: Temo Hassan MD 04/23/24 09:12 Subjective 2 Subjective: Patient is waiting for hip surgery scheduled for today. Patient still having issues with answering questions, will have a blank or puzzled look on her face at time when trying to converse with her. He is hard of hearing. Physical Exam 2 Urinary Catheter Management: Stoll: Cath Placed During This Visit: yes Data 04/22/24 05:10 04/22/24 05:10 A&P Assessment and plan (1) Displaced fracture of right femoral neck: Patient receiving surgery today, NPO since midnight Pain control with Dilaudid and oxycodone, nausea control with Zofran Senna for bowel regimen Stoll in place CBC, BMP tomorrow (2) UTI (urinary tract infection): Continue ceftriaxone. Growing gram-negative rods, await ID and sensitivity. (3) COPD (chronic obstructive pulmonary disease): (4) Hx of blood clots: Attestations 2 Medical Necessity Statement*: Needs continued hospitalization for definitive treatment of hip fracture with surgery today Diagnoses Displaced fracture of right femoral neck S72.001A UTI (urinary tract infection) N39.0 COPD (chronic obstructive pulmonary disease) J44.9 Hx of blood clots Z86.718 Time Spent (min) 26
[2024-04-23] MEDS: budesonide 0.5 mg/2 mL Neb INHALATION ×2 (07:52→20:43)
--- NOTE | 2024-04-23 08:29 | P.ANESASSM_ITS ---
Pre-Anesthetic Assessment Height/Weight: Height 5 ft 4 in Weight 108 lb 7 oz Temp Pulse Resp BP Pulse Ox O2 Del Method O2 Flow Rate 98.0 F 87 12 171/84 95 Nasal Cannula 2 04/23/24 07:56 04/23/24 07:56 04/23/24 07:56 04/23/24 07:56 04/23/24 07:56 04/23/24 07:56 04/23/24 07:53 FiO2 21 04/22/24 20:00 Preop Diagnosis: Hip fracture Operation Date: 04/23/24 10:40 Proposed Procedures p Hemiarthroplasty Hip(Right) - Tony Hernandez, DO Was Beta Yuliana taken within 24 hours: N/A Was Clonidine taken within 24 hours: N/A Last intake: Intake Last Liquid Date 04/22/24 Last Solid Date 04/22/24 Anesthetic Plan ASA status: 3 Anesthesia: General Other: No prior issues with anesthesia NPO since yesterday History of blood clots, no anticoagulation for the last year. Subcu heparin has been given while she is in the hospital CKD COPD, on inhalers Labs reviewed, hemoglobin 10. Creatinine 2.2 Medications/Allergies Home Medications Medication Instructions Recorded Confirmed Last Taken Type diphenhydramine HCl 25 mg capsule 25 mg PO BEDTIME PRN Sleep 12/23/19 04/22/24 Unknown History (NightTime Sleep Aid (diphenhydramine)) L.acidop,casei,lactis,rham-B.lact,callum 1 cap PO DAILY 05/17/21 04/22/24 Unknown History 625 mg (10 billion cell) capsule (Advanced Probiotic) Allergies Allergy/AdvReac Type Severity Reaction Status Date / Time celecoxib [From Celebrex] Allergy ADR-Vomitin Verified 07/26/21 09:46 g gabapentin Allergy Unknown Verified 07/26/21 09:46 ibuprofen Allergy ADR-Vomitin Verified 07/26/21 09:46 g nalbuphine [From Nubain] Allergy ADR-Halluci Verified 07/26/21 09:46 nating zolpidem [From Ambien] Allergy ADR-Halluci Verified 07/26/21 09:46 nating Current Medications Generic Name Dose Route Start Last Admin Trade Name Freq PRN Reason Stop Dose Admin Albuterol/Ipratropium 3 ml 04/21/24 17:03 04/22/24 08:36 Ipratropium-Albuterol 3 Ml Neb INHALATION 3 ml Q6H PRN Administration SHORTNESS OF BREATH Amlodipine Besylate 5 mg 04/21/24 17:15 04/22/24 08:51 Amlodipine 5 Mg Tablet PO 5 mg DAILY HUGH Administration Budesonide 0.5 mg 04/21/24 20:00 04/23/24 07:52 Budesonide 0.5 Mg/2 Ml Neb INHALATION 0.5 mg BID.RESPIRATORY HUGH Administration Ceftriaxone Sodium 1,000 mg 04/22/24 07:30 04/22/24 08:51 Ceftriaxone 1,000 Mg Sdv IVP 1,000 mg Q24H HUGH Administration Protocol Docusate Sodium 100 mg 04/21/24 18:00 04/22/24 17:49 Docusate Sodium 100 Mg Capsule PO 100 mg BID HUGH Administration Heparin Sodium (Porcine) 5,000 unit 04/21/24 21:00 04/22/24 20:24 Heparin 5,000 Unit/Ml Inj 1 Ml SUBCUT 5,000 unit Q12H HUGH Administration Hydralazine HCl 10 mg 04/21/24 17:14 04/21/24 17:39 Hydralazine 20 Mg/Ml Inj 1 Ml IVP 10 mg Q4H PRN Administration HYPERTENSION Hydromorphone HCl 0.5 mg 04/21/24 17:03 04/22/24 05:52 Hydromorphone 1 Mg/Ml Inj 1 Ml IVP 0.5 mg Q4H PRN Administration SEVERE PAIN Sodium Chloride 1,000 mls @ 75 mls/hr 04/21/24 17:03 04/22/24 17:49 Sodium Chloride 0.9% IV 75 mls/hr .[id number] HUGH Administration Oxycodone HCl 10 mg 04/21/24 18:17 04/23/24 04:04 Oxycodone 5 Mg Ir Tab/Cap PO 10 mg Q4H PRN Administration SEVERE PAIN Senna 17.2 mg 04/21/24 21:00 04/22/24 20:24 Sennosides 8.6 Mg Tablet PO 17.2 mg BEDTIME HUGH Administration PFSH Anesthesia Medical History (Updated 04/22/24 @ 10:26 by ERIC Joy STDTONI) COPD (chronic obstructive pulmonary disease) GERD (gastroesophageal reflux disease) Chronic kidney disease History of breast cancer Chronic pain of left lower extremity Nerve entrapment Chronic back pain Opioid contract exists Chronic pain disorder 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 Hx of cancer of lung Surgical History H/O: hysterectomy Hx of cholecystectomy History of lumpectomy of left breast Family History Denies family history of Anesthesia complication Social History Second hand smoke exposure: No Alcohol intake: never Substance/Drug Use: never Data Anesthesia 04/22/24 05:10 04/22/24 05:10 Short CBC 04/21/24 04/22/24 Range/Units 14:15 05:10 WBC 7.06 7.36 (3.29-11.43) 10^3/uL Hgb 12.00 10.10 L (11.27-16.99) g/dL Hct 38.6 33.0 L (36-47) % MCV 92.6 93.5 (85-98) fl Plt Count 225 161 (157-399) 10^3/cmm Neut % (Auto) 80.2 83.4 % Neut # (Auto) 5.66 6.13 (1.8-7.7) 10^3/uL BMP 04/21/24 04/22/24 14:15 05:10 Sodium 140 143 Potassium 4.0 4.7 Chloride 104 109 H Carbon Dioxide 25 24 BUN 40 H 40 H Creatinine 2.2 H 2.2 H Glucose 93 108 Calcium 9.1 8.5 Cardiac Enzymes 04/21/24 Range/Units 14:15 Creatine Kinase 45 (26-192) U/L Liver Function 04/21/24 Range/Units 14:15 Total Bilirubin 0.4 (0.15-1.2) mg/dL AST 18 (0-32) U/L ALT 13 (0-33) U/L Alkaline Phosphatase 96 (35-105) U/L Albumin 4.2 (3.5-5.2) g/dL Urine 04/21/24 Range/Units 18:35 Urine Color Yellow (Yellow) Urine Appearance Cloudy A (CLEAR) Urine pH 5 (5-7) Ur Specific [place] 1.015 (1.005-1.030) Urine Protein 2+ H (Negative) Urine Glucose (UA) Norm (Normal) Urine Ketones Negative (Negative) Urine Nitrate Negative (Negative) Urine Bilirubin Neg (Negative) Ur Leukocyte Esterase Trace H (Negative) Urine RBC 0-4 H (0-2) /hpf Urine WBC 15-25 H (0-5) /hpf Coags 04/21/24 14:15 PT 13.20 INR 0.97 Microbiology 04/21/24 18:35 Urine Culture - Preliminary Urine,Clean Catch Gram Negative Rods Cardiac Studies: 2 No Data to Display
[2024-04-23] MEDS: cefTRIAXone 1,000 mg SDV 1000 MG IVP (09:39)
[2024-04-23] MEDS: sodium chloride 0.9% 1,000 ML 30 ML IV (09:59)
--- NOTE | 2024-04-23 10:23 | W.PM.OPSUD ---
Surgery/Procedure H&P Update DATE OF PROCEDURE: April 23, 2024 DATE H&P PERFORMED: 04/22/24 H&P UPDATE INFORMATION: I have reviewed H&P completed within last 30 days, I have examined patient prior to procedure and No changes to prior documentation PREOP DIAGNOSIS: Hip fracture PLANNED PROCEDURE: Operation Date: 04/23/24 10:40 Proposed Procedures p Hemiarthroplasty Hip(Right) - Tony Hernandez DO
[2024-04-23] MEDS: ceFAZolin 2,000 mg SDV 2000 MG IVP ×2 (10:52→19:41)
--- NOTE | 2024-04-23 11:46 | PM.OP ---
Operative Report Date of procedure: April 23, 2024 Pre-op diagnosis: Right femoral neck fracture Post-op diagnosis: same Procedure done: Right hip hemiarthroplasty Surgeon: Tony Hernandez DO Estimated blood loss (mL): 50 Procedure: Right hip hemiarthroplasty Please brought the operative suite after going anesthesia was placed in the lateral decubitus position with the right side up. The leg was then prepped and draped normal sterile fashion. Skin incision was made over the hip IT band was split retractors were placed leg was externally rotated and a modified Anand approach was used. The abductor and capsule were taken down in 1 piece the capsule was retracted. The femoral neck cut was made 1 fingerbreadth above the lesser trochanter the femoral head was then removed and measured. Next attention was brought to the femur. The gill box operator was used followed by the canal finder followed by the lateralizer. The canal was broached to 5 size 5 stem was used with a negative for neck length and the appropriate size femoral head. The hip was reduced felt to be stable in all positions. Wounds were irrigated closed with FiberWire to repair the capsule and the abductors. Then the IT band was closed with 0 Vicryl skin was closed with 2-0 Vicryl and indy. Sterile dressings were applied and patient is transferred to the PACU in stable condition.
--- NOTE | 2024-04-23 12:42 | ANE.PACU2 ---
Inpatient post-anesthesia follow up: Airway intact: Yes Vital signs: Temperature 98.7 F Pulse Rate 87 Respiratory Rate 14 Blood Pressure 144/76 Pulse Oximetry 96 Oxygen Delivery Me thod Room Air Oxygen Flow Rate 2 Fraction of Inspir ed Oxygen 21 Hydration adequate: Yes Nausea and vomiting: No Pain level: 1 Mental status: Baseline
[2024-04-23] MEDS: sodium chloride 0.9% 1,000 ML 75 ML IV (13:25)
--- NOTE | 2024-04-23 13:47 | CTR_ITS ---
PROCEDURE INFORMATION: Exam: CT Head Without Contrast Exam date and time: 04/23/2024 4:37 PM Age: 79 years old Clinical indication: Other: Encephalopathy TECHNIQUE: Imaging protocol: Computed tomography of the head without contrast. Radiation optimization: All CT scans at this facility use at least one of these dose optimization techniques: automated exposure control; mA and/or kV adjustment per patient size (includes targeted exams where dose is matched to clinical indication); or iterative reconstruction. COMPARISON: No relevant prior studies available. RADIATION DOSE METRICS: Total DLP (mGy-cm): 1117.18 FINDINGS: Brain: No intracranial hemorrhage. There is global parenchymal volume loss. Periventricular white matter hypoattenuation is nonspecific but most likely due to small vessel disease. No evidence of acute territorial infarct or cerebral edema. No mass effect or midline shift. Cerebral ventricles: Prominent ventricles likely secondary to volume loss. Paranasal sinuses: Visualized sinuses are unremarkable. No fluid levels. Mastoid air cells: Visualized mastoid air cells are well aerated. Bones: Unremarkable. No acute fracture. Soft tissues: Unremarkable. CT/CT head wo con* [id number] IMPRESSION: No acute intracranial findings.
[2024-04-24] VITALS (10 sets, daily range): BP systolic 152–190; BP diastolic 70–92; PULSE 92–103; RESP 14–18; TEMP 36.7–37.2; O2SAT 97–100
[2024-04-24] MEDS: hyDRALAzine 20 mg/mL INJ 1 mL 10 MG IVP (00:14)
[2024-04-24] MEDS: sodium chloride 0.9% 1,000 ML 75 ML IV (03:02)
[2024-04-24] MEDS: ceFAZolin 2,000 mg SDV 2000 MG IVP ×2 (03:02→11:09)
[2024-04-24 05:25] LABS: Basophils # 0.1 10^3/uL (0.0-0.1); Basophils % 0.4 %; Eosinophils % 0.3 %; Hematocrit 33.2 % (36-47); Lymphocytes # 0.4 10^3/uL (0.8-4.8); Lymphocytes % 3.1 %; Mean Corpuscular HGB Conc 29.8 g/dL (30-55); Mean Corpuscular Hemoglobin 28.6 pg (27-33); Mean Platelet Volume 9.5 fL (7.4-10.4); Monocytes # 0.8 10^3/uL (0.2-0.9); Monocytes % 6.9 %; Neutrophils # 10.22 10^3/uL (1.8-7.7); Neutrophils % 88.6 %; Nucleated Red Blood Cells % 0 %; Platelet Count 158 10^3/cmm (157-399); Red Blood Count 3.46 10^6/uL (3.85-5.65); Red Cell Distribution Width 14.2 % (12.1-15.1); White Blood Count 11.54 10^3/uL (3.29-11.43)
[2024-04-24 05:51] LABS: Anion Gap 18.6 (5-19); Blood Urea Nitrogen 36 mg/dL (8-23); Calcium 8.6 mg/dL (8.5-10.5); Carbon Dioxide 18 mmol/L (22-29); Chloride 106 mmol/L (98-107); Creatinine Clr Calc Pharmacy 17.5318; Glucose 127 mg/dL (65-115); Osmolality Calculated 296 mOsm/kg (285-295); Potassium 4.6 mmol/L (3.5-5.1); Sodium 138 mmol/L (136-145)
[2024-04-24] MEDS: apixaban 5 mg Tablet 2.5 MG PO ×3 (06:12→21:35)
[2024-04-24] MEDS: budesonide 0.5 mg/2 mL Neb INHALATION ×2 (07:38→20:24)
[2024-04-24] MEDS: ipratropium-albuterol 3 mL Neb INHALATION (07:38)
[2024-04-24] MEDS: amlodipine 10 mg Tablet PO (08:31)
[2024-04-24] MEDS: cefTRIAXone 1,000 mg SDV 1000 MG IVP (08:31)
[2024-04-24] MEDS: docusate sodium 100 mg Capsule PO ×2 (08:32→17:14)
[2024-04-24 09:10] LABS: ABG PCO2 35.1 mmHg (35-45); ABG PH Result 7.31 (7.35-7.45); Arterial Blood Gas Hematocrit 31.1 % (37-47); Base Excess ABG -7.6 mmol/L (-2.0-2.0); Blood Gas Allen Test Pos; Blood Gas Operator Identificat BROMA; Blood Gas Sample Site Radial, right; Blood Gas Sample Type Arterial; HCO3 ABG 17.8 mmol/L (22-26); Oxygen Device ROOM AIR; PO2 ABG 60.2 mmHg (80.0-100.0); PO2 FiO2 Ratio Arterial Blood 286
--- NOTE | 2024-04-24 09:14 | P.PN_ITS ---
Subjective 2 Subjective: More awake this morning but still seems dazed. When prompted can respond verbally. Can follow directions. Speech is not perfectly clear. No specific lateralizing weakness. No pain medicine since yesterday. Vitals/I&O/Wt Last Vital Signs Temp 98.8 F 04/24/24 08:00 Pulse 97 04/24/24 08:00 Resp 16 04/24/24 08:00 BP 165/77 04/24/24 08:00 Pulse Ox 99 04/24/24 08:00 O2 Del Method Nasal Cannula 04/24/24 08:00 O2 Flow Rate 2 04/24/24 07:38 FiO2 21 04/22/24 20:00 04/23/24 04/24/24 04/24/24 22:59 06:59 14:59 Intake Total 948.5 / 1998.5 316.25 / 2314.75 Output Total 200 / 1095 550 / 1645 Balance 748.5 / 903.5 -233.75 / 669.75 Weight last 48 hrs Weight 50.094 kg Weight 49.186 kg Physical Exam 2 Narrative: General Exam, no distress, responds slowly and wants to go back to sleep. On 2 L of oxygen Neck is supple no lymphadenopathy thyromegaly Cardiovascular regular rate and rhythm, no murmur Lungs clear but diminished breath sounds bilaterally Abdomen soft, positive bowel sounds Extremities no cyanosis clubbing or edema, bandage right hip clean and dry Urinary Catheter Management: Stoll: Cath Placed During This Visit: yes Reason for Continuing Indwelling Catheter: Required Immobilization for Trauma or Surgery or Anesthesia Urinary Catheter Date of Insertion: 04/21/24 Urinary Catheter Time of Insertion: 16:00 Data 04/24/24 04:13 04/24/24 04:13 Micro: Microbiology 04/21/24 18:35 Urine Culture - Final Urine,Clean Catch Escherichia coli Other data: Head CT reviewed in detail, by myself as well today A&P Assessment and plan (1) Displaced fracture of right femoral neck: Postoperative day #1 Pain control with Dilaudid and oxycodone, nausea control with Zofran. She has not had pain medication since surgery Senna for bowel regimen Stoll in place CBC, BMP tomorrow (2) UTI (urinary tract infection): Continue ceftriaxone. E. coli was identified sensitive to the ceftriaxone (3) COPD (chronic obstructive pulmonary disease): Budesonide twice daily DuoNeb as needed (4) Hx of blood clots: Heparin and SCDs for DVT PPx Plan Acute encephalopathy. CT head was done yesterday demonstrating nothing acute. No particular lateralizing signs. Daughter reports she was not very interactive prior to surgery. I evaluated her directly postoperative, and she did not have any lateralizing signs. I have ordered an ABG. Continue to stimulate. She has improved from postsurgical. Full code Attestations 2 Medical Necessity Statement*: Needs continued hospitalization for close monitoring following surgery. Needs to initiate rehab, continue to follow wean of mental status to hopefully get her back to baseline. Note that she has underlying dementia according to daughter, which may be playing a role. Cannot exclude delirium although certainly seems more lethargic than excited. Diagnoses Displaced fracture of right femoral neck S72.001A UTI (urinary tract infection) N39.0 COPD (chronic obstructive pulmonary disease) J44.9 Hx of blood clots Z86.718 Time Spent (min) 25
[2024-04-24] MEDS: lactated ringers 1,000 ML 75 ML IV ×2 (10:20→23:26)
--- NOTE | 2024-04-24 10:51 | P.PN_ITS ---
Subjective 2 Subjective: Patient is sitting up in chair comfortable. Does not respond to questions is alert but not really talking. No complaints of pain Vitals/I&O/Wt Last Vital Signs Temp 98.8 F 04/24/24 08:00 Pulse 97 04/24/24 08:00 Resp 16 04/24/24 08:00 BP 165/77 04/24/24 08:00 Pulse Ox 99 04/24/24 08:00 O2 Del Method Nasal Cannula 04/24/24 08:00 O2 Flow Rate 2 04/24/24 07:38 FiO2 21 04/22/24 20:00 04/23/24 04/24/24 04/24/24 22:59 06:59 14:59 Intake Total 948.5 / 1998.5 316.25 / 2314.75 1000 / 1000 Output Total 200 / 1095 550 / 1645 Balance 748.5 / 903.5 -233.75 / 669.75 1000 / 1000 Weight last 48 hrs Weight 110 lb 7 oz Weight 108 lb 7 oz Physical Exam 2 Narrative: Sitting in chair resting comfortably. Urinary Catheter Management: Stoll: Cath Placed During This Visit: yes Reason for Continuing Indwelling Catheter: Required Immobilization for Trauma or Surgery or Anesthesia Urinary Catheter Date of Insertion: 04/21/24 Urinary Catheter Time of Insertion: 16:00 Data 04/24/24 04:13 04/24/24 04:13 Micro: Microbiology 04/21/24 18:35 Urine Culture - Final Urine,Clean Catch Escherichia coli A&P Assessment and plan (1) Displaced fracture of right femoral neck: Postop day #1 right hip hemiarthroplasty Start Eliquis today Up with PT Weight-bear as tolerated Attestations 2 Medical Necessity Statement*: Per primary service Coding Level of Care Code Acute Code for Chg Fwd Diagnoses Displaced fracture of right femoral neck S72.001A
[2024-04-24] MEDS: sennosides 8.6 mg Tablet 17.2 MG PO (21:35)
[2024-04-25] VITALS (11 sets, daily range): BP systolic 149–180; BP diastolic 73–81; PULSE 90–107; RESP 13–18; TEMP 36.4–36.9; O2SAT 96–99
[2024-04-25 03:27] LABS: Basophils % 0.3 %; Eosinophils # 0.1 10^3/uL (0.0-0.8); Eosinophils % 0.5 %; Hematocrit 29.2 % (36-47); Lymphocytes # 0.5 10^3/uL (0.8-4.8); Lymphocytes % 5.3 %; Mean Corpuscular HGB Conc 30.8 g/dL (30-55); Mean Corpuscular Hemoglobin 28.8 pg (27-33); Mean Corpuscular Volume 93.6 fl (85-98); Monocytes # 0.7 10^3/uL (0.2-0.9); Monocytes % 7.6 %; Neutrophils # 7.99 10^3/uL (1.8-7.7); Neutrophils % 85.8 %; Nucleated Red Blood Cells % 0 %; Platelet Count 162 10^3/cmm (157-399); Red Blood Count 3.12 10^6/uL (3.85-5.65); Red Cell Distribution Width 14.1 % (12.1-15.1); White Blood Count 9.32 10^3/uL (3.29-11.43)
[2024-04-25 03:47] LABS: Anion Gap 14.2 (5-19); Blood Urea Nitrogen 38 mg/dL (8-23); Calcium 8.6 mg/dL (8.5-10.5); Carbon Dioxide 22 mmol/L (22-29); Chloride 108 mmol/L (98-107); Glucose 115 mg/dL (65-115); Osmolality Calculated 300 mOsm/kg (285-295); Potassium 4.2 mmol/L (3.5-5.1); Sodium 140 mmol/L (136-145)
[2024-04-25 03:51] LABS: Creatinine Clr Calc Pharmacy 20.4538
[2024-04-25] MEDS: oxyCODONE 5 mg IR Tab/Cap PO (07:42)
[2024-04-25] MEDS: cefTRIAXone 1,000 mg SDV 1000 MG IVP (07:42)
[2024-04-25] MEDS: amlodipine 10 mg Tablet PO (07:43)
[2024-04-25] MEDS: apixaban 5 mg Tablet 2.5 MG PO ×2 (07:43→20:21)
[2024-04-25] MEDS: docusate sodium 100 mg Capsule PO ×2 (07:43→17:43)
[2024-04-25] MEDS: ipratropium-albuterol 3 mL Neb INHALATION (07:51)
[2024-04-25] MEDS: budesonide 0.5 mg/2 mL Neb INHALATION ×2 (07:51→20:07)
--- NOTE | 2024-04-25 10:12 | P.PN_ITS ---
Subjective 2 Subjective: Mili is much more alert today. She is interactive. Not quite back to baseline. Medications: Reviewed: Yes Vitals/I&O/Wt Last Vital Signs Temp 97.6 F 04/25/24 08:17 Pulse 93 04/25/24 08:17 Resp 17 04/25/24 08:17 BP 180/81 04/25/24 08:17 Pulse Ox 99 04/25/24 08:17 O2 Del Method Nasal Cannula 04/25/24 08:17 O2 Flow Rate 2 04/25/24 08:00 FiO2 21 04/22/24 20:00 04/24/24 04/25/24 04/25/24 22:59 06:59 14:59 Intake Total 0 / 1000 982.5 / 1982.5 Output Total 1200 / 1200 Balance 0 / 1000 -217.5 / 782.5 Weight last 48 hrs Weight 50.094 kg Physical Exam 2 Narrative: General Exam, no distress, responds slowly and wants to go back to sleep. On 2 L of oxygen Neck is supple no lymphadenopathy thyromegaly Cardiovascular regular rate and rhythm, no murmur Lungs clear but diminished breath sounds bilaterally Abdomen soft, positive bowel sounds Extremities no cyanosis clubbing or edema, bandage right hip clean and dry Urinary Catheter Management: Stoll: Cath Placed During This Visit: yes Reason for Continuing Indwelling Catheter: Required Immobilization for Trauma or Surgery or Anesthesia Urinary Catheter Date of Insertion: 04/21/24 Urinary Catheter Time of Insertion: 16:00 Data 04/25/24 02:14 04/25/24 02:14 Micro: Microbiology 04/21/24 18:35 Urine Culture - Final Urine,Clean Catch Escherichia coli A&P Assessment and plan (1) Displaced fracture of right femoral neck: Postoperative day #2 Pain control with Dilaudid and oxycodone, nausea control with Zofran. She has not had pain medication since surgery Senna for bowel regimen Stoll in place CBC, BMP tomorrow (2) UTI (urinary tract infection): Continue ceftriaxone. E. coli was identified sensitive to the ceftriaxone (3) COPD (chronic obstructive pulmonary disease): Budesonide twice daily DuoNeb as needed (4) Hx of blood clots: Heparin and SCDs for DVT PPx Plan Acute encephalopathy. CT head was done 04/24 demonstrating nothing acute. No particular lateralizing signs. Daughter reports she was not very interactive prior to surgery. I evaluated her directly postoperative, and she did not have any lateralizing signs. ABG did not show CO2 retention. Mental status significantly improved Full code Will need skilled care placement. Attestations 2 Medical Necessity Statement*: Needs continued hospital stay for close monitoring following hip fracture repair, close monitoring of acute encephalopathy. Will need placement. Diagnoses Displaced fracture of right femoral neck S72.001A UTI (urinary tract infection) N39.0 COPD (chronic obstructive pulmonary disease) J44.9 Hx of blood clots Z86.718 Time Spent (min) 24
[2024-04-25] MEDS: lactated ringers 1,000 ML 75 ML IV (13:21)
[2024-04-25] MEDS: sennosides 8.6 mg Tablet 17.2 MG PO (20:21)
--- NOTE | 2024-04-25 20:40 | PC.NURSE ---
patient cries in pain when scd's are applied. scd's turned off at this time. stage 2 open area noted to wound assessment to right lower extremetity, small amount of drainage, opti foam applied
--- NOTE | 2024-04-25 20:44 | PC.NURSE ---
patient only able to respond to yes or no questions. patient is alert but no orientaion noted.
--- NOTE | 2024-04-25 20:46 | PC.NURSE ---
patient blood pressure at this time 154/76 per BENCH HAND
[2024-04-26] VITALS (8 sets, daily range): BP systolic 128–171; BP diastolic 68–83; PULSE 84–104; RESP 12–18; TEMP 36.4–36.9; O2SAT 91–100
[2024-04-26] MEDS: lactated ringers 1,000 ML 75 ML IV (01:13)
[2024-04-26 03:38] LABS: Basophils % 0.3 %; Eosinophils # 0.1 10^3/uL (0.0-0.8); Eosinophils % 1.5 %; Hematocrit 25.7 % (36-47); Lymphocytes # 0.4 10^3/uL (0.8-4.8); Lymphocytes % 5.7 %; Mean Corpuscular HGB Conc 30.4 g/dL (30-55); Mean Corpuscular Hemoglobin 28.4 pg (27-33); Mean Corpuscular Volume 93.5 fl (85-98); Mean Platelet Volume 9.7 fL (7.4-10.4); Monocytes # 0.6 10^3/uL (0.2-0.9); Monocytes % 7.9 %; Neutrophils # 6.34 10^3/uL (1.8-7.7); Neutrophils % 83.8 %; Nucleated Red Blood Cells % 0 %; Platelet Count 171 10^3/cmm (157-399); Red Blood Count 2.75 10^6/uL (3.85-5.65); White Blood Count 7.56 10^3/uL (3.29-11.43)
[2024-04-26 04:05] LABS: Anion Gap 12.1 (5-19); Blood Urea Nitrogen 36 mg/dL (8-23); Calcium 8.5 mg/dL (8.5-10.5); Carbon Dioxide 24 mmol/L (22-29); Chloride 109 mmol/L (98-107); Glucose 109 mg/dL (65-115); Osmolality Calculated 301 mOsm/kg (285-295); Potassium 4.1 mmol/L (3.5-5.1); Sodium 141 mmol/L (136-145)
[2024-04-26 04:06] LABS: Creatinine Clr Calc Pharmacy 24.5445
--- NOTE | 2024-04-26 06:30 | P.PN_ITS ---
Subjective 2 Subjective: Patient is doing better, but is still somewhat lethargic. She answers yes or no questions, cries out in pain. Vitals/I&O/Wt Last Vital Signs Temp 97.6 F 04/26/24 04:00 Pulse 84 04/26/24 04:00 Resp 17 04/26/24 04:00 BP 163/79 04/26/24 04:00 Pulse Ox 97 04/26/24 04:00 O2 Del Method Nasal Cannula 04/26/24 04:00 O2 Flow Rate 2 04/26/24 04:00 FiO2 21 04/22/24 20:00 04/25/24 04/25/24 04/26/24 14:59 22:59 06:59 Intake Total 1020 / 1020 80 / 1100 890 / 1990 Output Total 1150 / 1150 350 / 1500 Balance 1020 / 1020 -1070 / -50 540 / 490 Weight last 48 hrs Weight 111 lb 7 oz Physical Exam 2 Neck/C-Spine: OTHER: Supple GI: OTHER: Soft, nondistended with normal bowel sounds : OTHER: Stoll noted Urinary Catheter Management: Stoll: Cath Placed During This Visit: yes Reason for Continuing Indwelling Catheter: Other Urinary Catheter Date of Insertion: 04/21/24 Urinary Catheter Time of Insertion: 16:00 Data 04/26/24 03:29 04/26/24 03:29 A&P Assessment and plan (1) Displaced fracture of right femoral neck: Post-op day #3 Pain control with Dilaudid and Oxycodone Nausea control with Zofran Senna for bowel regimen Stoll in place (2) UTI (urinary tract infection): Continue ceftriaxone (3) COPD (chronic obstructive pulmonary disease): Budesonide twice daily DueNed as needed (4) Hx of blood clots: Heparin and SCDs for DVT PPx Plan -Acute encephalopathy Full code Will need skilled care placement. Coding Level of Care Code Acute Code for Chg Fwd Diagnoses Displaced fracture of right femoral neck S72.001A UTI (urinary tract infection) N39.0 COPD (chronic obstructive pulmonary disease) J44.9 Hx of blood clots Z86.718
[2024-04-26] MEDS: cefTRIAXone 1,000 mg SDV 1000 MG IVP (07:59)
[2024-04-26] MEDS: docusate sodium 100 mg Capsule PO ×2 (08:10→18:00)
[2024-04-26] MEDS: amlodipine 10 mg Tablet PO (08:10)
[2024-04-26] MEDS: apixaban 5 mg Tablet 2.5 MG PO ×2 (08:10→19:53)
--- NOTE | 2024-04-26 10:06 | P.PN_ITS ---
Subjective 2 Subjective: Much more alert this morning. Pain is under control. No new concerns. Hemoglobin has drifted down. Medications: Reviewed: Yes Vitals/I&O/Wt Last Vital Signs Temp 98.3 F 04/26/24 07:26 Pulse 91 04/26/24 07:26 Resp 16 04/26/24 07:26 BP 145/68 04/26/24 07:26 Pulse Ox 99 04/26/24 07:26 O2 Del Method Nasal Cannula 04/26/24 07:26 O2 Flow Rate 2 04/26/24 04:00 FiO2 21 04/22/24 20:00 04/25/24 04/26/24 04/26/24 22:59 06:59 14:59 Intake Total 80 / 1100 890 / 1990 1240 / 1240 Output Total 1150 / 1150 350 / 1500 Balance -1070 / -50 540 / 490 1240 / 1240 Weight last 48 hrs Weight 50.547 kg Physical Exam 2 Narrative: General Exam, no distress, reports pain is under control Neck is supple no lymphadenopathy thyromegaly Cardiovascular regular rate and rhythm, no murmur Lungs clear but diminished breath sounds bilaterally Abdomen soft, positive bowel sounds Extremities no cyanosis clubbing or edema, bandage right hip clean and dry Urinary Catheter Management: Stoll: Cath Placed During This Visit: yes, but has since been removed by the nurse Reason for Continuing Indwelling Catheter: Perioperative Use in Selected Surgeries Urinary Catheter Date of Insertion: 04/21/24 Urinary Catheter Time of Insertion: 16:00 Date Urinary Catheter Removed: 04/26/24 Time Urinary Catheter Discontinued: 09:30 Data 04/26/24 03:29 04/26/24 03:29 A&P Assessment and plan (1) Displaced fracture of right femoral neck: Postoperative day #3 Discontinue Dilaudid. Continue oxycodone as needed for pain Senna for bowel regimen Discontinue Stoll today CBC, BMP tomorrow Discontinue IV fluids (2) UTI (urinary tract infection): Continue ceftriaxone. E. coli was identified sensitive to the ceftriaxone. Continue currently. (3) COPD (chronic obstructive pulmonary disease): Budesonide twice daily DuoNeb as needed (4) Hx of blood clots: Heparin and SCDs for DVT PPx Plan Acute encephalopathy. CT head was done 04/24 demonstrating nothing acute. No particular lateralizing signs. Daughter reports she was not very interactive prior to surgery. I evaluated her directly postoperative, and she did not have any lateralizing signs. ABG did not show CO2 retention. Mental status significantly now back to baseline Acute postoperative blood loss anemia. Recheck hemoglobin today. May need blood transfusion if less than 7 or becomes symptomatic/dropping quickly Full code Will need skilled care placement. Attestations 2 Medical Necessity Statement*: Needs continued hospitalization for close monitoring following hip fracture, evaluation of postoperative anemia Diagnoses Displaced fracture of right femoral neck S72.001A UTI (urinary tract infection) N39.0 COPD (chronic obstructive pulmonary disease) J44.9 Hx of blood clots Z86.718 Time Spent (min) 24
--- NOTE | 2024-04-26 11:57 | XRR_ITS ---
PROCEDURE INFORMATION: Exam: XR Left Wrist Exam date and time: 04/26/2024 12:16 PM Age: 79 years old Clinical indication: Pain; Wrist; Left; Additional info: Pain redness TECHNIQUE: Imaging protocol: Radiologic exam of the left wrist. Views: 1 or 2 views. COMPARISON: CR XR hand LT 2V [id number] 04/26/2024 12:15 PM FINDINGS: Bones/joints: Osteopenia. Degenerative changes about the carpus. No fracture. Soft tissues: Normal. XR/XR wrist LT 2V [id number] IMPRESSION: No acute bony abnormality.
--- NOTE | 2024-04-26 11:57 | XRR_ITS ---
PROCEDURE INFORMATION: Exam: XR Left Hand Exam date and time: 04/26/2024 12:15 PM Age: 79 years old Clinical indication: Pain; Hand; Left; Additional info: Erythema, pain TECHNIQUE: Imaging protocol: Radiologic exam of the left hand. Views: 1 or 2 views. COMPARISON: No relevant prior studies available. FINDINGS: Bones/joints: Osteopenia. Degenerative changes. No acute fracture. Soft tissues: Normal. Other findings: Deformity at base of distal phalanx of the thumb likely representing remote injury. XR/XR hand LT 2V [id number] IMPRESSION: No acute bony abnormality.
--- NOTE | 2024-04-26 12:01 | P.DS_ITS ---
Discharge Providers Date of Admission: 04/21/24 15:28 Date of Discharge: April 26, 2024 Attending Provider at Admission: Temo Hassan MD Attending Provider at Discharge: Temo Hassan MD Primary Care Provider: Yary Tilley Diagnoses at Discharge Discharge Diagnosis (1) Displaced fracture of right femoral neck: Status: Acute (2) UTI (urinary tract infection): Status: Acute (3) COPD (chronic obstructive pulmonary disease): Status: Acute (4) Hx of blood clots: Status: Acute Reason for Visit Reason for Visit: FALL Hospital Course Hospital Course Patient is an 79-year-old female with some underlying dementia who presented after a fall. She sustained a right hip fracture. Orthopedics was consulted, and she underwent repair on April 23 without complication. She was very lethargic following the operation, thought to be secondary to pain medicine but secondary to this a CT of the head was obtained which demonstrated no bleeding or obvious acute ischemic stroke. With holding pain medication she became more aware and alert, conversive, and able to participate in rehabilitation. She is discharging to a nursing facility today. She will get Eliquis 2.5 mg twice daily on discharge for DVT prophylaxis. Consideration to continue this indefinitely secondary to her history of DVT. She was treated for UTI while in the hospital but will not require further antibiotics at discharge. Her left thumb region had some pain, so an x-ray will be done prior to discharge to prove no fracture is apparent. Likely this is a sprain, or related to her IV in that arm. She will follow-up with Ortho per their instruction and follow-up at the senior care facility with the provider there. CBC, BMP in 3 days. Physical Exam Narrative: See exam done earlier today Urinary Catheter Management: Stoll: Cath Placed During This Visit: yes, but has since been removed by the nurse Reason for Continuing Indwelling Catheter: Perioperative Use in Selected Surgeries Urinary Catheter Date of Insertion: 04/21/24 Urinary Catheter Time of Insertion: 16:00 Date Urinary Catheter Removed: 04/26/24 Time Urinary Catheter Discontinued: 09:30 Discharge Data Studies Completed and Pending Completed Studies During Hospitalization Category Date Time Status CT head wo con* [id number] Routine Cat Scan 04/23/24 13:47 Completed CXRP [XR chest 1V portable [id number]] Stat Exams 04/21/24 14:46 Completed XR hip RT 2-3V wo/w pel* [id number] Stat Exams 04/21/24 13:30 Completed Pending at discharge Category Date Time Status XR hand LT 2V [id number] Routine Exams 04/26/24 11:57 Ordered XR wrist LT 2V [id number] Routine Exams 04/26/24 11:57 Ordered Antibody Identification Routine Lab 04/23/24 07:56 Results Antigen Typing Patient Routine Lab 04/23/24 07:56 Results BMP [Basic Metabolic Panel] AM LABS Lab 04/27/24 04:00 Ordered CBC Auto Diff [Complete Blood Count w/Auto] AM LABS Lab 04/27/24 04:00 Ordered Leukocyte Reduced RBC Routine Lab 04/23/24 07:56 Results Type and Screen Routine Lab 04/23/24 07:56 Results Radiology Impressions Hip/Pelvis X-Ray 04/21/24 13:30 Impression: 1. Right femoral neck fracture. 2. Negative for definite left hip fracture Chest X-Ray 04/21/24 14:46 Impression: Atherosclerosis and hyperinflation. Head CT 04/23/24 13:47 IMPRESSION: No acute intracranial findings. Laboratory Results WBC 7.56 10^3/uL (3.29-11.43) 04/26/24 03:29 RBC 2.75 10^6/uL (3.85-5.65) L 04/26/24 03:29 Hgb 8.50 g/dL (11.27-16.99) L 04/26/24 10:54 Hct 25.7 % (36-47) L 04/26/24 03:29 MCV 93.5 fl (85-98) 04/26/24 03:29 MCH 28.4 pg (27-33) 04/26/24 03:29 MCHC 30.4 g/dL (30-55) 04/26/24 03:29 RDW 14.0 % (12.1-15.1) 04/26/24 03:29 Plt Count 171 10^3/cmm (157-399) 04/26/24 03:29 MPV 9.7 fL (7.4-10.4) 04/26/24 03:29 Neut % (Auto) 83.8 % 04/26/24 03:29 Lymph % (Auto) 5.7 % 04/26/24 03:29 Chaves % (Auto) 7.9 % 04/26/24 03:29 Eos % (Auto) 1.5 % 04/26/24 03:29 Baso % (Auto) 0.3 % 04/26/24 03:29 Neut # (Auto) 6.34 10^3/uL (1.8-7.7) 04/26/24 03:29 Lymph # (Auto) 0.4 10^3/uL (0.8-4.8) L 04/26/24 03:29 Chaves # (Auto) 0.6 10^3/uL (0.2-0.9) 04/26/24 03:29 Eos # (Auto) 0.1 10^3/uL (0.0-0.8) 04/26/24 03: Baso # (Auto) 0.0 10^3/uL (0.0-0.1) 04/26/24 03: Nucleated RBC % (auto) 0 % 04/26/24 03: Nucleated RBCs # 0.0 /100WBC 04/26/24 03:29 PT 13.20 SECONDS (12.1-14.9) 04/21/24 14:15 INR 0.97 (0.8-1.2) 04/21/24 14:15 Specimen Type Arterial 04/24/24 08:50 Sample Site Radial, right 04/24/24 08:50 ABG pH 7.31 (7.35-7.45) L 04/24/24 08:50 ABG pCO2 35.1 mmHg (35-45) 04/24/24 08:50 ABG pO2 60.2 mmHg (80.0-100.0) L 04/24/24 08:50 ABG PO2/FiO2 Ratio 286 04/24/24 08:50 ABG HCO3 17.8 mmol/L (22-26) L 04/24/24 08:50 ABG Base Excess -7.6 mmol/L (-2.0-2.0) L 04/24/24 08:50 Tommy Test Pos 04/24/24 08:50 Hematocrit 31.1 % (37-47) L 04/24/24 08:50 O2 Delivery Device Room air 04/24/24 08:50 FiO2 21.0 % 04/24/24 08:50 Radio Communications Mechanician ID Broma 04/24/24 08:50 Sodium 141 mmol/L (136-145) 04/26/24 03:29 Potassium 4.1 mmol/L (3.5-5.1) 04/26/24 03:29 Chloride 109 mmol/L (98-107) H 04/26/24 03:29 Carbon Dioxide 24 mmol/L (22-29) 04/26/24 03:29 Anion Gap 12.1 (5-19) 04/26/24 03:29 BUN 36 mg/dL (8-23) H 04/26/24 03:29 Creatinine 1.5 mg/dL (0.5-0.9) H 04/26/24 03:29 GFR Calculation Not Reportable 04/26/24 03:29 Glucose 109 mg/dL (65-115) 04/26/24 03:29 Calculated Osmolality 301 mOsm/kg (285-295) H 04/26/24 03:29 Calcium 8.5 mg/dL (8.5-10.5) 04/26/24 03:29 Magnesium 2.0 mg/dL (1.7-2.3) 04/22/24 05:10 Total Bilirubin 0.4 mg/dL (0.15-1.2) 04/21/24 14:15 AST 18 U/L (0-32) 04/21/24 14:15 ALT 13 U/L (0-33) 04/21/24 14:15 Alkaline Phosphatase 96 U/L (35-105) 04/21/24 14:15 Creatine Kinase 45 U/L (26-192) 04/21/24 14:15 Total Protein 6.6 g/dL (6.6-8.7) 04/21/24 14:15 Albumin 4.2 g/dL (3.5-5.2) 04/21/24 14:15 Globulin 2.4 g/dL (1.3-4.6) 04/21/24 14:15 Vitamin B12 599 pg/mL (232-1245) 04/21/24 14:15 TSH 1.55 uIU/mL (0.27-4.20) 04/21/24 14:15 Urine Color Yellow (Yellow) 04/21/24 18:35 Urine Appearance Cloudy (CLEAR) A 04/21/24 18:35 Urine pH 5 (5-7) 04/21/24 18:35 Ur Specific Greig 1.015 (1.005-1.030) 04/21/24 18:35 Urine Protein 2+ (Negative) H 04/21/24 18:35 Urine Glucose (UA) Norm (Normal) 04/21/24 18:35 Urine Ketones Negative (Negative) 04/21/24 18:35 Urine Blood Neg (Negative) 04/21/24 18:35 Urine Nitrate Negative (Negative) 04/21/24 18:35 Urine Bilirubin Neg (Negative) 04/21/24 18:35 Urine Urobilinogen Norm mg/dL (Negative) 04/21/24 18:35 Ur Leukocyte Esterase Trace (Negative) H 04/21/24 18:35 Urine RBC 0-4 /hpf (0-2) H 04/21/24 18:35 Urine WBC 15-25 /hpf (0-5) H 04/21/24 18:35 Ur Squamous Epith Cells 0-4 /hpf (0-5) H 04/21/24 18:35 Amorphous Sediment Not Reportable 04/21/24 18:35 Urine Bacteria 4+ /hpf (NONE) H 04/21/24 18:35 Blood Type O Positive 04/23/24 07:56 Rho(D) Type Rh positive 04/23/24 07:56 Antibody Screen Positive 04/23/24 07:56 Antibody Identification Anti-K 04/23/24 07:56 Antigen Identification K Antigen - NEGATIVE 04/23/24 07:56 Crossmatch See Detail 04/23/24 07:56 Vitals Last Vital Signs Temp 97.5 F L 04/26/24 11:33 Pulse 93 04/26/24 11:33 Resp 16 04/26/24 11:33 BP 145/81 04/26/24 11:33 Pulse Ox 100 04/26/24 11:33 O2 Del Method Nasal Cannula 04/26/24 11:33 O2 Flow Rate 2 04/26/24 04:00 FiO2 21 04/22/24 20:00 Discharge Plan Discharge Patient Disposition: Xfer SNF Condition: Stable Prescriptions: New tramadol 50 mg tablet 50 mg PO Q8H PRN (Reason: pain) Qty: 20 0RF sennosides [senna] 8.6 mg Tablet 17.2 mg PO BEDTIME Qty: 30 0RF ipratropium-albuterol 0.5 mg-3 mg(2.5 mg base)/3 mL Solution For Nebulization 3 ml inhalation Q6H PRN (Reason: Shortness Of Breath) Qty: 280 0RF Eliquis 5 mg Tablet 2.5 mg PO BID@0900,2100 Qty: 30 0RF docusate sodium 100 mg Capsule 100 mg PO BID Qty: 60 0RF budesonide 0.5 mg/2 mL Suspension For Nebulization 0.5 mg inhalation BID.RESPIRATORY Qty: 120 0RF amlodipine 10 mg Tablet 10 mg PO DAILY Qty: 30 0RF Discontinued diphenhydramine HCl [NightTime Sleep Aid (diphen)] 25 mg capsule 25 mg PO BEDTIME PRN (Reason: Sleep) Advanced Probiotic 625 mg (10 billion cell) capsule 1 cap PO DAILY Discharge Orders: Discharge Order (Routine); Ordered 04/26/24 Ordered By: Temo Hassan Referrals: Charles Veliz [Family Provider] - Yary Tilley [Primary Care Provider] - Discharge Diet: Regular Discharge Activity: Increase activity as tolerated Patient Instructions: Acute Wound Care (DC), Post Anesthesia Care Activity Restrictions/Additional Instructions: You are being discharged from the hospital today during which time you have been under the care of Dr. Hernandez. You had a right femoral neck fracture. You were treated for this injury with right hip hemiarthroplasty. You may resume you normal diet (including any special diets as directed by your primary doctor) as well as your home medications. You should follow up with you primary doctor if you have any questions regarding medication you took prior to your stay in the hospital. You may take your pain medication as prescribed. After the first few days, take your pain medication as needed. Do not drive or drink alcohol while taking your pain medication. Your injury may increase your risk of developing a blood clot,or DVT, in your arm or leg. This could potentially dislodge and travel to your lungs and become a life threatening condition called apulmonary embolus,or PE. You have been prescribed Eliquis to be taken to prevent this. Frequent movement of the legs will also help prevent this from occurring. If you develop any new or worsening cough, chestpain, bloody sputum or shortness of breath, call 911 or go to the EmergencyRoom. Always keep your surgical incision/dressing clean and dry. If you experience increasing pain at your incision site, redness, swelling, increasing discharge, foul odors, or fevers (greater than 100.4), night sweats or chills you should call the office at the above number. If you feel this is an emergency you should be evaluated in the Emergency Department of a nearby hospital. Orthopedic Patient Instructions Summary: Weight Bearing: Weight-bear as tolerated Activity: As tolerated. Diet: Regular. Wound Care: Keep dressing clean and dry. Anticoagulation: Eliquis Pain Medication: Take only as needed. Ice, rest and elevation will be of great benefit. Please plan to follow-up [facility] Dr Hernandez in 2 weeks. You will need to call the clinic [phone] to schedule this visit. Thank you far allowing me to participate in your care. Do not hesitate to call the office with any questions or concerns. Take all medicine as prescribed CBC and BMP in 3 days X-ray of left hand and wrist prior to discharge. Discharge Attestations Time Spent in Discharge Care*: greater than 30 min Quality Metrics Clinical Quality Measures [ No reported AMI, CVA or VTE this stay] Coding Level of Care Code 79675 Total time (in minutes) for Discharge: 32 Diagnoses Displaced fracture of right femoral neck S72.001A UTI (urinary tract infection) N39.0 COPD (chronic obstructive pulmonary disease) J44.9 Hx of blood clots Z86.718 Time Spent (min) 32
--- NOTE | 2024-04-26 12:29 | PC.SOCIAL ---
IMM Updated Updated pt on IMM. No questions voiced. Provided pt a copy. Initialed, dated, & timed copy in chart.
[2024-04-26] MEDS: oxyCODONE 5 mg IR Tab/Cap PO ×2 (12:58→23:38)
[2024-04-26 13:45] LABS: SARS Covid-2 Antigen Negative (Negative)
--- NOTE | 2024-04-26 15:50 | PC.OT ---
OT TREATMENT HELD DUE TO SCHEDULED PATIENT D/C TODAY
[2024-04-26] MEDS: sennosides 8.6 mg Tablet 17.2 MG PO (19:53)
[2024-04-26] MEDS: acetaminophen 325 mg Tablet 650 MG PO (19:53)
[2024-04-27] VITALS: BP 152/79; PULSE 102; RESP 16; TEMP 36.9; O2SAT 95
[2024-04-27 04:00] VITALS: BP 124/74; PULSE 101; RESP 17; TEMP 36.9; O2SAT 96
[2024-04-27 04:29] LABS: Basophils # 0.1 10^3/uL (0.0-0.1); Basophils % 0.7 %; Eosinophils # 0.2 10^3/uL (0.0-0.8); Hematocrit 26.5 % (36-47); Lymphocytes # 0.5 10^3/uL (0.8-4.8); Lymphocytes % 6.2 %; Mean Corpuscular HGB Conc 31.7 g/dL (30-55); Mean Corpuscular Hemoglobin 29.6 pg (27-33); Mean Corpuscular Volume 93.3 fl (85-98); Mean Platelet Volume 9.4 fL (7.4-10.4); Monocytes # 0.7 10^3/uL (0.2-0.9); Monocytes % 8.7 %; Neutrophils # 6.18 10^3/uL (1.8-7.7); Nucleated Red Blood Cells % 0 %; Platelet Count 193 10^3/cmm (157-399); Red Blood Count 2.84 10^6/uL (3.85-5.65); White Blood Count 7.62 10^3/uL (3.29-11.43)
[2024-04-27 04:50] LABS: Anion Gap 14.7 (5-19); Blood Urea Nitrogen 39 mg/dL (8-23); Calcium 8.6 mg/dL (8.5-10.5); Carbon Dioxide 24 mmol/L (22-29); Chloride 103 mmol/L (98-107); Creatinine Clr Calc Pharmacy 24.6287; Glucose 98 mg/dL (65-115); Osmolality Calculated 295 mOsm/kg (285-295); Potassium 3.7 mmol/L (3.5-5.1); Sodium 138 mmol/L (136-145)
[2024-04-27 08:00] VITALS: BP 169/81; PULSE 90; RESP 17; TEMP 36.6; O2SAT 93
--- NOTE | 2024-04-27 08:25 | P.PN_ITS ---
Subjective 2 Subjective: No events overnight. She did not transfer to nursing facility as expected. Patient conversive, reports hip pain. Medications: Reviewed: Yes Vitals/I&O/Wt Last Vital Signs Temp 98.4 F 04/27/24 04:00 Pulse 101 H 04/27/24 04:00 Resp 17 04/27/24 04:00 BP 124/74 04/27/24 04:00 Pulse Ox 96 04/27/24 04:00 O2 Del Method Room Air 04/27/24 04:00 O2 Flow Rate 2 04/26/24 04:00 FiO2 21 04/22/24 20:00 04/26/24 04/27/24 04/27/24 22:59 06:59 14:59 Intake Total 240 / 1600 60 / 60 Balance 240 / 1600 60 / 60 Weight last 48 hrs Weight 49.578 kg Weight 50.547 kg Physical Exam 2 Narrative: No distress, conversant Cardiovascular regular in rhythm Lungs clear Abdomen soft Extremities no sinus clubbing edema, right hip dressing clean and dry Urinary Catheter Management: Stoll: Cath Placed During This Visit: yes, but has since been removed by the nurse Reason for Continuing Indwelling Catheter: Perioperative Use in Selected Surgeries Urinary Catheter Date of Insertion: 04/21/24 Urinary Catheter Time of Insertion: 16:00 Date Urinary Catheter Removed: 04/26/24 Time Urinary Catheter Discontinued: 09:30 Data 04/27/24 04:08 04/27/24 04:08 A&P Assessment and plan (1) Displaced fracture of right femoral neck: Postoperative day #4 Discontinue Dilaudid. Continue oxycodone as needed for pain Senna for bowel regimen CBC BMP reviewed, hemoglobin stable Expect discharge today (2) UTI (urinary tract infection): Continue ceftriaxone. E. coli was identified sensitive to the ceftriaxone. No need for antibiotic on discharge (3) COPD (chronic obstructive pulmonary disease): Budesonide twice daily DuoNeb as needed (4) Hx of blood clots: Eliquis for DVT prophylaxis discharge Plan Acute encephalopathy. CT head was done 04/24 demonstrating nothing acute. No particular lateralizing signs. Daughter reports she was not very interactive prior to surgery. I evaluated her directly postoperative, and she did not have any lateralizing signs. ABG did not show CO2 retention. Mental status significantly now back to baseline Acute postoperative blood loss anemia. Stable Full code Will need skilled care placement. Expect placement today. See discharge summary from yesterday. Attestations 2 Medical Necessity Statement*: Discharging today Diagnoses Displaced fracture of right femoral neck S72.001A UTI (urinary tract infection) N39.0 COPD (chronic obstructive pulmonary disease) J44.9 Hx of blood clots Z86.718 Time Spent (min) 15
--- NOTE | 2024-04-27 08:49 | PC.NURSE ---
Report called to [facility]. Ready Transport here to [employer] pt
[2024-04-27 08:51] VITALS: RESP 20
[2024-04-27] MEDS: docusate sodium 100 mg Capsule PO (08:51)
[2024-04-27] MEDS: apixaban 5 mg Tablet 2.5 MG PO (08:51)
[2024-04-27] MEDS: amlodipine 10 mg Tablet PO (08:51)
[2024-04-27] MEDS: oxyCODONE 5 mg IR Tab/Cap PO (08:51)
--- NOTE | 2024-04-27 09:02 | PC.NURSE ---
Daughter Sloane advised that pt is being transported to [facility] now.
[2024-04-27 09:04] VITALS: BP 163/81; PULSE 90; RESP 20; TEMP 36.6; O2SAT 93
== END 2024-04-27 09:08 | disposition skilled nursing facility (03) | DRG 522 ==
LOC: ER 15:07 → MEDSURG 15:28
PROVIDERS: Orthopaedic Surgery; Admitting Provider Internal Medicine; Emergency Provider Emergency Medicine; Family Provider Physician Assistant Medical; PCP Registered Nurse; Visit Provider Internal Medicine
PROC: 0SRR0JZ Replacement of Right Hip Joint, Femoral Surface with Synthetic Substitute, Open Approach (ICD-10-PCS; CPT 27125; principal; 2024-04-23 10:40)
DX: S72.001A Fracture of unspecified part of neck of right femur, initial encounter for closed fracture (principal); N39.0 Urinary tract infection, site not specified; G93.40 Encephalopathy, unspecified; D62 Acute posthemorrhagic anemia; J44.9 Chronic obstructive pulmonary disease, unspecified; N18.9 Chronic kidney disease, unspecified; K21.9 Gastro-esophageal reflux disease without esophagitis; G89.29 Other chronic pain; M54.9 Dorsalgia, unspecified; M79.605 Pain in left leg; H91.90 Unspecified hearing loss, unspecified ear; Z86.718 Personal history of other venous thrombosis and embolism; Z79.01 Long term (current) use of anticoagulants; Z85.3 Personal history of malignant neoplasm of breast; Z85.118 Personal history of other malignant neoplasm of bronchus and lung; Z79.891 Long term (current) use of opiate analgesic; W19.XXXA Unspecified fall, initial encounter; Y92.009 Unspecified place in unspecified non-institutional (private) residence as the place of occurrence of the external cause
CPT/HCPCS: 36415; 36600; 51702; 70450; 71045; 73100; 73120; 73502; 80048; 80053; 80503; 81001; 82550; 82607; 82803; 83735; 84443; 85018; 85025; 85610; 86850; 86870; 86900; 86902; 86920; 87077; 87086; 87186; 87426; 92523; 92610; 93005; 94640; 96372; 96374; 96375; 97110; 97163; 97165; 97530; 99285; C1776; J0360; J0690; J0696; J1100; J1170; J1644; J2270; J2371; J2405; J2704; J2710; J3010; J3490; J7030; J7120; J7626

== ENCOUNTER 2024-05-05 12:22 | Emergency (ER) | payer MEDICARE, MEDICAID, SELFPAY ==
--- NOTE | 2024-05-05 12:28 | XR_ITS ---
WS: [id number] Exam: XR hip LT 2-3V wo/w pel* [id number] Date/Time of Exam: 05/05/2024 12:46 PM Reason For Exam: fall, left hip pain. with pelvis Comparison 04/21/2024. Subcapital fracture of the LEFT hip noted. Age is indeterminate. This may be a healed fracture. Mild degenerative change of the joint compartment. Normal soft tissues. Osteopenia. Recommendations: Consider CT for confirmation. XR/XR hip LT 2-3V wo/w pel* [id number] IMPRESSION: 1. Deformity of the LEFT femoral neck suggesting subcapital fracture. Age is in determinate. This might be a healed fracture.
[2024-05-05 12:31] VITALS: BP 154/82; PULSE 85; RESP 18; TEMP 36.9; O2SAT 96; BMI 21.4
--- NOTE | 2024-05-05 13:04 | CT_ITS ---
WS: [id number] CT LEFT HIP, NONCONTRAST HISTORY: concern for hip fracture., No LEFT hip pain. Technique: All CT scans at [facility] use at least one of these dose optimization techniques: automated exposure control; mA and/or kV adjustment per patient size (includes targeted exams where dose is matched to clinical indication); or iterative reconstruction. DLP: 238.41 mGy.cm COMPARISON: Radiograph 04/21/2024, radiograph 05/05/2024 No acute fractures identified. There is a sharp angulation between the femoral head and neck but this was also present on the radiographs from 04/21/2024. No fracture line is identified. I suspect this c ould be a healed fracture. There is no adjacent surrounding edema. Normal position of the femoral hea d and the acetabulum. No free fluid in the pelvis. No soft tissue hematoma. RIGHT hip arthroplasty noted on the localizer. CT/CT hip LT wo con* [id number] IMPRESSION: 1. Acute angulation between the femoral head and neck. No fracture line is steffanie ntified. Suspect there may have been a prior fracture with healing. If there is continued pain or concern MRI would provide additional information concerning edema. 2. No acute fracture identified.
[2024-05-05] MEDS: famotidine 20 mg/2 mL INJ 40 MG IVP (13:20)
--- NOTE | 2024-05-05 13:45 | W.ED.EXTPRO ---
HPI - Extremity Problem General: Chief complaint: Extremity Injury, Lower Stated complaint: right hip frature Time Seen by Provider: 05/05/24 12:24 History of Present Illness: 79-year-old female who presents to the emergency room by ambulance from long term with concerns for a possible left hip fracture. She had x-rays done because PT thought she was walking different on her left leg. She complains of no pain. She has been walking. No recent falls are reported. Unclear exactly why the x-ray was done but there was concern for a left femoral neck fracture. Related Data Home Medications Medication Instructions Recorded Confirmed acetaminophen 325 mg tablet 325 mg PO QID PRN ELEVATED FEVER 05/05/24 05/05/24 (Tylenol) bisacodyl 10 mg rectal suppository 10 mg NV DAILY PRN CONSTIPATION 05/05/24 05/05/24 (Dulcolax (bisacodyl)) calcium carbonate 1,000 mg PO QID PRN REFLUX 05/05/24 05/05/24 docusate sodium 100 mg tablet 100 mg PO BID 05/05/24 05/05/24 magnesium citrate 296 ml PO DAILY PRN CONSTIPATION 05/05/24 05/05/24 magnesium hydroxide 400 mg/5 mL 30 ml PO DAILY PRN CONSTIPATION 05/05/24 05/05/24 oral suspension (Milk of Magnesia) sodium phosphates 19 gram-7 118 ml NV DAILY PRN CONSTIPATION 05/05/24 05/05/24 gram/118 mL enema (Fleet Enema) Previous Rx's Medication Instructions Recorded amlodipine 10 mg tablet 10 mg PO DAILY #30 tabs 04/26/24 apixaban 5 mg tablet (Eliquis) 2.5 mg (1/2 x 5 mg) PO 04/26/24 BID@0900,2100 #30 tabs budesonide 0.5 mg/2 mL suspension 0.5 mg (2 mL) inhalation 04/26/24 for nebulization BID.RESPIRATORY #120 mL ipratropium 0.5 mg-albuterol 3 mg 3 ml inhalation Q6H PRN Shortness 04/26/24 (2.5 mg base)/3 mL nebulization Of Breath #280 mL soln sennosides 8.6 mg tablet (senna) 17.2 mg (2 x 8.6 mg) PO BEDTIME 04/26/24 #30 tabs tramadol 50 mg tablet 50 mg PO Q8H PRN pain #20 tabs 04/26/24 Allergies Allergy/AdvReac Type Severity Reaction Status Date / Time celecoxib [From Celebrex] Allergy ADR-Vomitin Verified 07/26/21 09:46 g gabapentin Allergy Unknown Verified 07/26/21 09:46 ibuprofen Allergy ADR-Vomitin Verified 07/26/21 09:46 g nalbuphine [From Nubain] Allergy ADR-Halluci Verified 07/26/21 09:46 nating zolpidem [From Ambien] Allergy ADR-Halluci Verified 07/26/21 09:46 nating Review of Systems Narrative: Constitutional symptoms: Negative except as documented in HPI. Skin symptoms: Negative except as documented in HPI. Eye symptoms: Negative except as documented in HPI. ENMT symptoms: Negative except as documented in HPI. Respiratory symptoms: Negative except as documented in HPI. Cardiovascular symptoms: Negative except as documented in HPI. Gastrointestinal symptoms: Negative except as documented in HPI. Genitourinary symptoms: Negative except as documented in HPI. Musculoskeletal symptoms: Negative except as documented in HPI. Neurologic symptoms: Negative except as documented in HPI. Psychiatric symptoms: Negative except as documented in HPI. Endocrine symptoms: Negative except as documented in HPI. PFSH ED PFSH: Medical History (Updated 05/05/24 @ 14:23 by Gloria Soler MD) COPD (chronic obstructive pulmonary disease) GERD (gastroesophageal reflux disease) Chronic kidney disease History of breast cancer Chronic pain of left lower extremity Nerve entrapment Chronic back pain Opioid contract exists Chronic pain disorder Hx of blood clots [employer] (current) use of opiate analgesic Hx of cancer of lung Surgical History H/O: hysterectomy Hx of cholecystectomy History of lumpectomy of left breast Family History Denies family history of Anesthesia complication Social History Second hand smoke exposure: No Alcohol intake: never Substance/Drug Use: never Physical Exam Narrative: EXAM NARRATIVE: General: Alert, no acute distress. Skin: Warm, dry. Head: Normocephalic, atraumatic. Neck: Supple, trachea midline. Eye: Extraocular movements are intact. Ears, nose, mouth and throat: mucosa moist. Cardiovascular: Regular, Normal peripheral perfusion. Respiratory: Lungs are clear to auscultation, respirations are non-labored, breath sounds are equal, Symmetrical chest wall expansion. Gastrointestinal: Soft, Nontender, Non distended Musculoskeletal: Normal ROM, no deformity. Neurological: Alert and oriented, No focal neurological deficit observed. Psychiatric: Cooperative, appropriate mood & affect. Course Vital Signs: Vital signs: Vital Signs Temperature 98.5 F 05/05/24 12:31 Pulse Rate 85 05/05/24 12:31 Respiratory Rate 18 05/05/24 12:31 Blood Pressure 154/82 05/05/24 12:31 Pulse Oximetry 96 05/05/24 12:31 Oxygen Delivery Me thod Room Air 05/05/24 12:31 MDM - Extremity (Nontraumatic) Medical Decision Making X-ray of the left hip. There is a deformity of the left femoral neck suggesting a subcapital fracture. This may be a healed fracture. CT was recommended. This was reviewed and interpreted by myself the emergency room physician. I also reviewed the radiology report. CT of the left hip shows an area that may represent an old fracture but does not have anything acute. There is also dull pain. This was reviewed and interpreted by myself the emergency room physician. I also reviewed the radiology report. Assessment and plan: Fall - Discharged home - Discussed plan with patient. Answered any questions. - Evaluation and treatment of this problem were appropriate in the emergency setting. Lab Data Radiology Impressions Hip/Pelvis X-Ray 05/05/24 12:28 IMPRESSION: 1. Deformity of the LEFT femoral neck suggesting subcapital fracture. Age is indeterminate. This might be a healed fracture. Hip CT 05/05/24 13:04 IMPRESSION: 1. Acute angulation between the femoral head and neck. No fracture line is identified. Suspect there may have been a prior fracture with healing. If there is continued pain or concern MRI would provide additional information concerning edema. 2. No acute fracture identified. All radiology interpretation(s) finalized by discharge Discharge Plan Discharge Patient Disposition: Home Clinical Impression: Fall Condition: Stable Prescriptions: No Action amlodipine 10 mg Tablet 10 mg PO DAILY Qty: 30 0RF Eliquis 5 mg Tablet 2.5 mg PO BID@0900,2100 Qty: 30 0RF sennosides [senna] 8.6 mg Tablet 17.2 mg PO BEDTIME Qty: 30 0RF ipratropium-albuterol 0.5 mg-3 mg(2.5 mg base)/3 mL Solution For Nebulization 3 ml inhalation Q6H PRN (Reason: Shortness Of Breath) Qty: 280 0RF budesonide 0.5 mg/2 mL Suspension For Nebulization 0.5 mg inhalation BID.RESPIRATORY Qty: 120 0RF tramadol 50 mg tablet 50 mg PO Q8H PRN (Reason: pain) Qty: 20 0RF acetaminophen [Tylenol] 325 mg Tablet 325 mg PO QID PRN (Reason: ELEVATED FEVER ) magnesium hydroxide [Milk of Magnesia] 400 mg/5 mL Suspension 30 ml PO DAILY PRN (Reason: CONSTIPATION ) bisacodyl [Dulcolax (bisacodyl)] 10 mg Suppository 10 mg NV DAILY PRN (Reason: CONSTIPATION ) Fleet Enema 19-7 gram/118 mL Enema 118 ml NV DAILY PRN (Reason: CONSTIPATION ) magnesium citrate Solution 296 ml PO DAILY PRN (Reason: CONSTIPATION ) calcium carbonate [Tums 500] 500 mg calcium (1,250 mg) Tablet,Chewable 1,000 mg PO QID PRN (Reason: REFLUX) docusate sodium 100 mg Tablet 100 mg PO BID Discharge Orders: Discharge ED (Routine); Ordered 05/05/24 Ordered By: Gloria Soler Referrals: Charles Veliz [Family Provider] - Yary Tilley [Primary Care Provider] - Discharge Diet: Usual diet Discharge Activity: Increase activity as tolerated Patient Instructions: Pain Management Activity Restrictions/Additional Instructions: Thank you for choosing [facility] for your healthcare needs today. Please realize this is an emergency room and that we are providing you with a medical screening exam and this may not be complete and all inclusive of all the testing and or work up that you may need to determine your ailment or severity of your illness. You have been screened and evaluated and felt safe for discharge. Health conditions do change or evolve sometimes and as such it is important that you follow up with your Primary Doctor to be re checked, 3-5 days is a general good time frame for follow up. You are always welcome to return to the ED for re assessment if your symptoms are worsening or you have new concerns Coding Level of Care Code ED Slag Skimmer for Maria De Jesus Stafford
== END 2024-05-05 16:43 | disposition home or self-care (01) ==
PROVIDERS: Emergency Provider Emergency Medicine; Family Provider Physician Assistant Medical; PCP Registered Nurse
DX: M25.552 Pain in left hip (principal); Z79.01 Long term (current) use of anticoagulants; J44.9 Chronic obstructive pulmonary disease, unspecified; N18.9 Chronic kidney disease, unspecified; Z85.3 Personal history of malignant neoplasm of breast; Z85.118 Personal history of other malignant neoplasm of bronchus and lung; W20.8XXA Other cause of strike by thrown, projected or falling object, initial encounter; Y92.129 Unspecified place in nursing home as the place of occurrence of the external cause
CPT/HCPCS: 73502; 73700; 96374; 99285; J3490

== ENCOUNTER → 2024-05-25 14:35 | Outpatient (BNVA) | payer MEDICARE, MEDICAID, SELFPAY | PROVIDERS: Family Provider Physician Assistant Medical; PCP Registered Nurse; Visit Provider Orthopaedic Surgery | DX: S72.001A Fracture of unspecified part of neck of right femur, initial encounter for closed fracture (principal); X58.XXXA Exposure to other specified factors, initial encounter | CPT/HCPCS: 73502; 99024 ==